=== PATIENT | male | born 1995 | race Two or more races ===

== ENCOUNTER 2022-09-01 21:28 | Emergency (ER) | payer MEDICAID ==
[~2022-09-01] VITALS: Ht 167.6 cm; Wt 63.6 kg
[2022-09-01 22:02] LABS: Basophils # (auto) 0 10 ^3/uL (0-0.2); Basophils % (auto) 0.5 % (0.0-2.0); Eosinophils # (auto) 0.1 10 ^3/uL (0-0.8); Eosinophils % (auto) 1.2 % (0.0-7.0); Hematocrit 43.8 % (41.0-53.0); Hemoglobin 14.7 g/dL (13.5-17.5); Lymphocytes # (auto) 2.2 10 ^3/uL (0.4-5.4); Lymphocytes % (auto) 27.3 % (10.0-50.0); Mean Corpuscular Hemoglobin 27.6 pg (28.0-32.0); Mean Corpuscular Hgb Conc. 33.4 g/dL (32.0-36.0); Mean Corpuscular Volume 82.5 fL (80.0-100.0); Monocytes # (auto) 0.9 10 ^3/uL (0-1.3); Monocytes % (auto) 11.1 % (0.0-12.0); Neutrophils # (auto) 4.9 10 ^3/uL (1.6-8.6); Neutrophils % (auto) 59.9 % (37.0-80.0); Nucleated Red Blood Cells % 0.1 %; Red Blood Cells 5.31 10^6/uL (4.5-5.90); Red Cell Distribution Width 13.5 % (11.8-14.3); White Blood Cell 8.2 10^3/uL (4.4-10.8)
[2022-09-01 22:14] LABS: INR 1.02 (0.9-1.15); Partial Thromboplastin Time 31.3 sec (24.6-33.4)
[2022-09-01 22:16] LABS: Albumin 3.7 g/dL (3.4-5.0); BUN/Creatinine Ratio 15.1; Calcium 8.8 mg/dL (8.5-10.1); Magnesium 2.3 mg/dL (1.6-2.6); Potassium 3.9 mmol/L (3.5-5.1)
[2022-09-01 22:19] LABS: Bilirubin, Total 0.4 mg/dL (0.2-1.0); Total Protein 8.1 g/dL (6.4-8.2)
[2022-09-02 02:50] VITALS: BP 128/72
== END 2022-09-02 03:18 | disposition home or self-care (01) ==
LOC: ER 21:28
DX: R07.89 Other chest pain (principal); F41.9 Anxiety disorder, unspecified; F14.10 Cocaine abuse, uncomplicated; Z79.899 Other long term (current) drug therapy
CPT/HCPCS: 36415; 71045; 80053; 83735; 83880; 84484; 85025; 85610; 85730; 93005

== ENCOUNTER 2024-09-16 00:32 | Emergency (ER) | payer MEDICAID ==
[2024-09-16] MEDS: ONDANSETRON ODT 4 MG TAB PO ONE (00:45)
--- NOTE | 2024-09-16 00:49 | ED.PDOC ---
History of Present Illness HPI Comments 28-year-old male who came to ER due to overdose. Patient states he thinks he smoked fentanyl earlier today. He fell asleep and woke up to find himself covered in vomitus. Claims he doesn't do drugs and he is coming in just to make sure that he is okay. Chief Complaint: Overdose Time Seen by MD: 00:49 Reviewed Notes: Nurses Notes Allergies: Coded Allergies: NO KNOWN ALLERGIES (Unverified , 09/01/22) Information Source: Patient Mode of Arrival: Ambulatory Severity: Moderate Timing: Hours Duration: Since onset Prehospital treatment: None Past Medical History PAST MEDICAL HISTORY: Denies Surgical History: Denies all surgeries Family History Family History: Reviewed,noncontributory to illness Social History Smoker: Non-Smoker Alcohol: Occasionally Drugs: Denies Drug Use Lives In: Home Constitutional: denies: chills, diaphoresis, fatigue, fever, malaise, sweats, weakness, others EENTM: denies: blurred vision, double vision, ear bleeding, ear discharge, ear drainage, ear pain, ear ringing, eye pain, eye redness, hearing loss, mouth pain, mouth swelling, nasal discharge, nose bleeding, nose congestion, nose pain, photophobia, tearing, throat pain, throat swelling, voice changes, others Respiratory: denies: cough, hemoptysis, orthopnea, SOB at rest, shortness of breath, SOB with excertion, stridor, wheezing, others Cardiovascular: denies: chest pain, dizzy spells, diaphoresis, Dyspnea on exertion, edema, irregular heart beat, left arm pain, lightheadedness, palpitations, PND, syncope, others Gastrointestinal: reports: nausea, vomiting; denies: abdomen distended, abdominal pain, blood streaked bowels, constipated, diarrhea, dysphagia, difficu lty swallowing, hematemesis, melena, poor appetite, poor fluid intake, rectal bleeding, rectal pain, others Genitourinary: denies: burning, dysuria, flank pain, frequency, hematuria, incontinence, penile discharge, penile sore, pain, testicle pain, testicle swelling, urgency, others Neurological: denies: dizziness, fainting, headache, left sided numbness, left sided weakness, numbness, paresthesia, pre-existing deficit, right sided numbness, right sided weakness, seizure, speech problems, tingling, tremors, weakness, others Musculoskeletal: denies: back pain, gout, joint pain, joint swelling, muscle pain, muscle stiffness, neck pain, others Integumetry: denies: bruises, change in color, change in hair/nails, dryness, laceration, lesions, lumps, rash, wounds, others Allergic/Immunocompromised: denies: Difficulty Healing, Frequent Infections, Hives, Itching, others Hematologic/Lymphatic: denies: anemia, blood clots, easy bleeding, easy bruising, swollen glands, others Endocrine: denies: excessive hunger, excessive sweating, excessive thirst, excessive urination, flushing, intolerance to cold, intolerance to heat, unexplained weight gain, unexplained weight loss, others Psychiatric: reports: anxiety; denies: bipolar disorder, depression, hopeless, panic disorder, schizophrenia, sleepless, suicidal, others Physical Exam General Appearance: No Apparent Distress, Normal HEENT: Normal ENT Inspection, Pharynx Normal, TMs Normal Neck: Full Range of Motion, Non-Tender, Normal, Normal Inspection Respiratory: Chest Non-Tender, Lungs Clear, No Accessory Muscle Use, No Respiratory Distress, Normal Breath Sounds Cardiovascular: No Edema, No JVD, No Murmur, No Gallop, Normal Peripheral Pulses, Regular Rate/Rhythm Breast Exam: Deferred Gastrointestinal: No Organomegaly, Non Tender, No Pulsatile Mass, Normal Bowel Sounds, Soft Genitalia: Deferred Pelvic: Deferred Rectal: Deferred Extremities: No calf tenderness, Normal capillary refill, Normal inspection, Normal range of motion, Non-tender, No pedal edema Musculoskeletal : Apperance: Normal Neurologic: Alert, powertrain calibration engineer II-XII nml as Tested, No Motor Deficits, Normal Affect, Normal Mood, No Sensory Deficits Cerebellar Function: Normal Reflexes: Normal Skin: Dry, Normal Color, Warm Lymphatic: No Adenopathy Was a procedure done? Was a procedure done?: No Differential Dx Considerations may include: Substance abuse, intoxication, anxiety, suicidal gesture X-Ray, Labs, Meds, VS Vital Signs Date Time Temp Pulse Resp B/P (MAP) Pulse Ox O2 Delivery O2 Flow Rate FiO2 09/16/24 04:00 55 11 96/50 (65) 97 09/16/24 01:11 97.9 68 9 115/83 (94) 97 97.9 09/16/24 01:11 68 9 97 Room Air* 0 21 09/16/24 00:44 97.1 88 14 134/84 (101) 100 Current Medications Medications (Trade) Dose Ordered Sig/Trupti Route Start Time Stop Time Status Last Admin Ondansetron HCl (Zofran Po) 4 mg ONCE ONCE PO 09/16/24 00:45 09/16/24 00:54 DC 09/16/24 00:45 Naloxone HCl (Narcan) 0.4 mg ONCE ONCE IM 09/16/24 00:45 09/16/24 00:54 DC 09/16/24 01:25 X-Ray, Labs, Meds, VS Comment Addendum by Dr. Bess: Patient was A&O x4. Patient ambulates with difficulty. He was no other complaints. Physical exam was benign. As such, patient was discharged home. Asked to refrain from using drugs. Time of 1ST Reevaluation: 00:43 Reevaluation 1ST: Unchanged Patient Education/Counseling: Diagnosis, Treatment Family Education/Counseling: No Family Present Departure 1 Departure Time of Disposition: 07:50 Impression: Primary Impression: Opiate abuse, episodic Disposition: 01 HOME / SELF CARE / HOMELESS Condition: Good Discharged With: Self Critical Care Note Critical Care Time?: No Stability Stability form required: No Heart Score Heart Score: Heart Score Response (Comments) Value History N/A 0 EKG N/A 0 Age N/A 0 Risk Factors N/A 0 Troponin N/A 0 Total 0 I personally scribed for MILAGROS SCHMIDT MD ([email or web address]) on 09/16/24 at 00:49. Electronically submitted by Aime Richard ([email or web address]). MILAGROS SCHMIDT MD Sep 16, 2024 00:49 ARASELI BESS MD Sep 16, 2024 07:51
[2024-09-16 01:11] VITALS: PULSE 68; RESP 9; O2SAT 97
[2024-09-16] MEDS: NALOXONE HCL 0.4 MG/ML VIAL IM ONE (01:25)
[2024-09-16 08:00] VITALS: BP 114/75; RESP 16; TEMP 97.9; O2SAT 99
[2024-09-16 08:10] VITALS: PULSE 54
== END 2024-09-16 07:51 | disposition home or self-care (01) ==
LOC: ER 00:35
DX: F11.10 Opioid abuse, uncomplicated (principal); R11.10 Vomiting, unspecified
CPT/HCPCS: 82947; 96372; 99285; J2310; Q0162

== ENCOUNTER 2024-09-25 18:10 | Emergency (ER) | payer MEDICAID ==
[~2024-09-25] VITALS: Ht 167.6 cm; Wt 63.5 kg
--- NOTE | 2024-09-25 19:19 | DVH ---
EXAM: US TESTICULAR ULTRASOUND Clinical History: Testicular pain Comparison: None TECHNIQUE: Grayscale color-flow and focus duplex Doppler also examination of the contents of the scro cat was performed. Findings: Right testis measures 3.3 x 2.0 x 2.7 cm. Right epididymal head measures 1.0 cm. 0.9 cm anechoic lesi on in the epididymis. No right hydrocele or varicocele. Left testis measures 3.3 x 2.3 x 2.7 cm. Left epididymal head measures 1.1 cm. No left hydrocele or v aricocele. Homogeneous echotexture noted in both testes without evidence of intratesticular masses. Arterial and venous flow is documented to both testes. Impression: 1. No evidence of testicular torsion or intratesticular masses. 2. No hydrocele or varicocele bilaterally. 3. Right epididymal cyst.
--- NOTE | 2024-09-25 19:32 | ED.PDOC ---
General HPI Comments PT REPORTS TESTICULAR PAIN x2 WEEKS. PT DENIES ANY NOTED SWELLING OR URINARY SYMPTOMS. PT DENIES SHOWING THIS RN. Denies redness, injury, or history of STDs. Chief Complaint: Testicle Pain Time Seen by MD: 19:03 Reviewed notes: Nurses Notes, Medications, Allergies Allergies: Coded Allergies: NO KNOWN ALLERGIES (Unverified , 09/01/22) Information Source: Patient Mode of Arrival: Ambulatory Past Medical History PAST MEDICAL HISTORY: Denies Surgical History: Denies all surgeries Family History Family History: Reviewed,noncontributory to illness Social History Smoker: Non-Smoker Alcohol: Occasionally Drugs: Denies Drug Use Lives In: Home Constitutional: denies: chills, diaphoresis, fatigue, fever, malaise, sweats, weakness, others EENTM: denies: blurred vision, double vision, ear bleeding, ear discharge, ear drainage, ear pain, ear ringing, eye pain, eye redness, hearing loss, mouth pain, mouth swelling, nasal discharge, nose bleeding, nose congestion, nose pain, photophobia, tearing, throat pain, throat swelling, voice changes, others Respiratory: denies: cough, hemoptysis, orthopnea, SOB at rest, shortness of breath, SOB with excertion, stridor, wheezing, others Cardiovascular: denies: chest pain, dizzy spells, diaphoresis, Dyspnea on exertion, edema, irregular heart beat, left arm pain, lightheadedness, palpitations, PND, syncope, others Gastrointestinal: denies: abdomen distended, abdominal pain, blood streaked bowels, constipated, diarrhea, dysphagia, difficulty swallowing, hematemesis, melena, nausea, poor appetite, poor fluid intake, rectal bleeding, rectal pain, vomiting, others Genitourinary: reports: testicle pain; denies: burning, dysuria, flank pain, frequency, hematuria, incontinence, penile discharge, penile sore, pain, testicle swelling, urgency, others Neurological: denies: dizziness, fainting, headache, left sided numbness, left sided weakness, numbness, paresthesia, pre-existing deficit, right sided numbness, right sided weakness, seizure, speech problems, tingling, tremors, weakness, others Musculoskeletal: denies: back pain, gout, joint pain, joint swelling, muscle pain, muscle stiffness, neck pain, others Integumetry: denies: bruises, change in color, change in hair/nails, dryness, laceration, lesions, lumps, rash, wounds, others Allergic/Immunocompromised: denies: Difficulty Healing, Frequent Infections, Hives, Itching, others Hematologic/Lymphatic: denies: anemia, blood clots, easy bleeding, easy bruising, swollen glands, others Endocrine: denies: excessive hunger, excessive sweating, excessive thirst, excessive urination, flushing, intolerance to cold, intolerance to heat, unexplained weight gain, unexplained weight loss, others Psychiatric: denies: anxiety, bipolar disorder, depression, hopeless, panic disorder, schizophrenia, sleepless, suicidal, others Physical Exam General Appearance: No Apparent Distress, Normal HEENT: Pharynx Normal Neck: Full Range of Motion, Non-Tender Respiratory: Lungs Clear, No Respiratory Distress, Normal Breath Sounds Cardiovascular: No Murmur, Normal Peripheral Pulses, Regular Rate/Rhythm Breast Exam: Deferred Gastrointestinal: Non Tender, Soft Genitalia: Testicle (No noted swelling, erythema, or lesions on bilateral testicles), Normal Pelvic: Deferred Rectal: Deferred Extremities: Normal capillary refill, Normal inspection, Normal range of motion, Non-tender, No pedal edema Musculoskeletal : Apperance: Normal Neurologic: Alert, gift packer II-XII nml as Tested, No Motor Deficits, Normal Affect, Normal Mood, No Sensory Deficits Cerebellar Function: Normal Reflexes: Normal Skin: Dry, Normal Color, Warm Lymphatic: No Adenopathy Was a procedure done? Was a procedure done?: No Differential Diagnosis Kidney stone (Female): N/A Kidney stone (Male): N/A Penile/Scrotal: STD, Testicular Torsion Urinary Problem (Male): N/A Urinary Problem (Female): N/A X-Ray, Labs, Meds, VS Vital Signs Date Time Temp Pulse Resp B/P (MAP) Pulse Ox O2 Delivery O2 Flow Rate FiO2 09/25/24 18:18 98.6 94 18 130/92 (105) 99 X-Ray, Labs, Meds, VS Comment Ultrasound shows cyst no torsion, or infection. Results given to patient advised him to follow up with his PCP in 1-2 days for referral to Urology for continued evaluation. Rest increase p.o. fluids with electrolyte. Supportive underwear try ice. Tylenol or Motrin. Return precautions given patient indicates understanding agrees with discharge plan of care. Time of 1ST Reevaluation: 19:31 Reevaluation 1ST: Improved Patient Education/Counseling: Diagnosis, Treatment, Prognosis, Need For Follow Up Family Education/Counseling: No Family Present Departure 1 Departure Time of Disposition: 19:31 Impression: Primary Impression: Benign cyst of testis Disposition: 01 HOME / SELF CARE / HOMELESS Condition: Stable Discharged With: Self Critical Care Note Critical Care Time?: No Stability Stability form required: FELIPE Sequeira Sep 25, 2024 19:32
[2024-09-25 19:38] VITALS: BP 130/92; PULSE 94; RESP 18; TEMP 98.6; O2SAT 99
== END 2024-09-25 19:44 | disposition home or self-care (01) ==
LOC: ER 18:10
DX: N44.2 Benign cyst of testis (principal)
CPT/HCPCS: 76870

== ENCOUNTER 2024-11-06 19:53 | Emergency (ER) | payer MEDICAID ==
[~2024-11-06] VITALS: Ht 175.3 cm; Wt 63.6 kg
--- NOTE | 2024-11-06 19:59 | ED.PDOC ---
Altered Mental Status HPI Comments 29 y.o male with PMHx of DM and HTN, presents to the ED via EMS for an evaluation of and OD. EMS reports finding patient behind a store with weak pulses and pin point pupils. EMS administrated 4 of Narcan with response. Patient reports daily use of methamphetamine, states he last used this morning but it was a pack of variety of substances. Patient previously used Fentanyl but no longer uses. He denies any pain or symptoms at this time. Time Seen by MD: 19:51 Reviewed Notes: Nurses Notes, Trapeze Performer Notes, Medications, Allergies Allergies: Coded Allergies: NO KNOWN ALLERGIES (Unverified , 09/01/22) Information Source: Patient, Emergency Med Personnel Mode of Arrival: EMS Severity: Moderate Duration: Since onset Prehospital treatment: 12 Lead EKG, Accucheck (292), Teradata Architect, Treatment (Narcan ) Quality: Decreased Alertness Recent: None History of: Diabetes Associated Signs and Symptoms: None Past Medical History PAST MEDICAL HISTORY: DM, HTN Surgical History: Denies all surgeries Family History Family History: Reviewed,noncontributory to illness Social History Smoker: Cigarettes Alcohol: Occasionally Drugs: Marijuana, Methamphetamine Lives In: Home Constitutional: denies: chills, diaphoresis, fatigue, fever, malaise, sweats, weakness, others EENTM: denies: blurred vision, double vision, ear bleeding, ear discharge, ear drainage, ear pain, ear ringing, eye pain, eye redness, hearing loss, mouth pain, mouth swelling, nasal discharge, nose bleeding, nose congestion, nose pain, photophobia, tearing, throat pain, throat swelling, voice changes, others Respiratory: denies: cough, hemoptysis, orthopnea, SOB at rest, shortness of breath, SOB with excertion, stridor, wheezing, others Cardiovascular: denies: chest pain, dizzy spells, diaphoresis, Dyspnea on exertion, edema, irregular heart beat, left arm pain, lightheadedness, palpitations, PND, syncope, others Gastrointestinal: denies: abdomen distended, abdominal pain, blood streaked bowels, constipated, diarrhea, dysphagia, difficulty swallowing, hematemesis, melena, nausea, poor appetite, poor fluid intake, rectal bleeding, rectal pain, vomiting, others Genitourinary: denies: burning, dysuria, flank pain, frequency, hematuria, incontinence, penile discharge, penile sore, pain, testicle pain, testicle swelling, urgency, others Neurological: denies: dizziness, fainting, headache, left sided numbness, left sided weakness, numbness, paresthesia, pre-existing deficit, right sided numbness, right sided weakness, seizure, speech problems, tingling, tremors, weakness, others Musculoskeletal: denies: back pain, gout, joint pain, joint swelling, muscle pain, muscle stiffness, neck pain, others Integumetry: denies: bruises, change in color, change in hair/nails, dryness, laceration, lesions, lumps, rash, wounds, others Allergic/Immunocompromised: denies: Difficulty Healing, Frequent Infections, Hives, Itching, others Hematologic/Lymphatic: denies: anemia, blood clots, easy bleeding, easy bruising, swollen glands, others Endocrine: denies: excessive hunger, excessive sweating, excessive thirst, excessive urination, flushing, intolerance to cold, intolerance to heat, unexplained weight gain, unexplained weight loss, others Psychiatric: denies: anxiety, bipolar disorder, depression, hopeless, panic disorder, schizophrenia, sleepless, suicidal, others All Other Systems: Reviewed and Negative Physical Exam General Appearance: Mild Distress HEENT: Normal ENT Inspection, Pharynx Normal, TMs Normal Neck: Full Range of Motion, Non-Tender, Normal, Normal Inspection Respiratory: Chest Non-Tender, Lungs Clear, No Accessory Muscle Use, No Respiratory Distress, Normal Breath Sounds Cardiovascular: No Edema, No JVD, No Murmur, No Gallop, Normal Peripheral Pulses, Regular Rate/Rhythm Breast Exam: Deferred Gastrointestinal: No Organomegaly, Non Tender, No Pulsatile Mass, Normal Bowel Sounds, Soft Genitalia: Deferred Pelvic: Deferred Rectal: Deferred Extremities: No calf tenderness, Normal capillary refill, No pedal edema Musculoskeletal : Apperance: Normal Neurologic: Alert, youth services specialist II-XII nml as Tested, Motor Weakness, Normal Affect, Normal Mood, No Sensory Deficits Cerebellar Function: Normal Reflexes: Normal Skin: Dry, Normal Color, Warm Lymphatic: No Adenopathy Was a procedure done? Was a procedure done?: No Differential Diagnosis (ALOC) Differential Diagnosis: Hypoglycemia, DKA, Hypoxemia, Closed Head Injury, Drug Overdose, ETOH Intoxication X-Ray, Labs, Meds, VS Vital Signs Date Time Temp Pulse Resp B/P (MAP) Pulse Ox O2 Delivery O2 Flow Rate FiO2 11/06/24 20:42 97.9 95 10 140/100 (113) 99 97.9 Lab Test 11/06/24 20:18 Range/Units White Blood Count 11.0 H 4.4-10.8 10^3/uL Red Blood Count 5.56 4.5-5.90 10^6/uL Hemoglobin 16.0 13.5-17.5 g/dL Hematocrit 46.6 41.0-53.0 % Mean Corpuscular Volume 83.9 80.0-100.0 fL Mean Corpuscular Hemoglobin 28.7 28.0-32.0 pg Mean Corpuscular Hemoglobin Concent 34.2 32.0-36.0 g/dL Red Cell Distribution Width 13.4 11.8-14.3 % Platelet Count 237 140-450 10^3/uL Mean Platelet Volume 7.4 6.9-10.8 fL Neutrophils (%) (Auto) 67.8 37.0-80.0 % Lymphocytes (%) (Auto) 24.7 10.0-50.0 % Monocytes (%) (Auto) 6.0 0.0-12.0 % Eosinophils (%) (Auto) 1.2 0.0-7.0 % Basophils (%) (Auto) 0.3 0.0-2.0 % Neutrophils # (Auto) 7.4 1.6-8.6 10 ^3/uL Lymphocytes # (Auto) 2.7 0.4-5.4 10 ^3/uL Monocytes # (Auto) 0.7 0-1.3 10 ^3/uL Eosinophils # (Auto) 0.1 0-0.8 10 ^3/uL Basophils # (Auto) 0 0-0.2 10 ^3/uL Nucleated Red Blood Cells 0.0 % Sodium Level 139 136-145 mmol/L Potassium Level 3.7 3.5-5.1 mmol/L Chloride Level 105 98-107 mmol/L Carbon Dioxide Level 25 20-31 mmol/L Anion Gap 9 5-15 Blood Urea Nitrogen 10 9-23 mg/dL Creatinine 1.31 H 0.700-1.30 mg/dL Glomerular Filtration Rate Calc 77 >90 mL/min BUN/Creatinine Ratio 7.6 L 10.0-20.0 Serum Glucose 274 H 74-106 mg/dL Calcium Level 9.6 8.7-10.4 mg/dL Plasma/Serum Blood Alcohol < 3.0 <10 mg/dL The patient's CBC shows a slightly elevated white blood cell count of 11.0 The CBC is within normal limits. The chemistry panel is within normal limits. At this time, the patient is going to be referred for social sciences research scientist secondary to his living condition The patient will be signed out to Dr. Melgar Time of 1ST Reevaluation: 19:55 Reevaluation 1ST: Unchanged Patient Education/Counseling: Diagnosis, Treatment, Prognosis Family Education/Counseling: No Family Present Departure 1 Departure Time of Disposition: 21:25 Impression: Primary Impression: Opiate abuse, episodic Disposition: 30 STILL A PATIENT Condition: Fair Critical Care Note Critical Care Time?: No Stability Stability form required: No I personally scribed for MAYELIN TIM MD ([email or web address]) on 11/06/24 at 19:59. Electronically submitted by Patricia Joyner ([facility]). MAYELNI TIM MD Nov 06, 2024 19:59
[2024-11-06 20:25] LABS: Basophils # (auto) 0 10 ^3/uL (0-0.2); Basophils % (auto) 0.3 % (0.0-2.0); Eosinophils # (auto) 0.1 10 ^3/uL (0-0.8); Eosinophils % (auto) 1.2 % (0.0-7.0); Hematocrit 46.6 % (41.0-53.0); Lymphocytes # (auto) 2.7 10 ^3/uL (0.4-5.4); Lymphocytes % (auto) 24.7 % (10.0-50.0); Mean Corpuscular Hemoglobin 28.7 pg (28.0-32.0); Mean Corpuscular Hgb Conc. 34.2 g/dL (32.0-36.0); Mean Corpuscular Volume 83.9 fL (80.0-100.0); Monocytes # (auto) 0.7 10 ^3/uL (0-1.3); Neutrophils # (auto) 7.4 10 ^3/uL (1.6-8.6); Neutrophils % (auto) 67.8 % (37.0-80.0); Platelet Count (auto) 237 10^3/uL (140-450); Red Blood Cells 5.56 10^6/uL (4.5-5.90); Red Cell Distribution Width 13.4 % (11.8-14.3)
[2024-11-06 20:33] LABS: Anion Gap 9 (5-15); Carbon Dioxide 25 mmol/L (20-31); Chloride 105 mmol/L (98-107); Potassium 3.7 mmol/L (3.5-5.1); Sodium 139 mmol/L (136-145)
[2024-11-06 20:34] LABS: Calcium 9.6 mg/dL (8.7-10.4)
[2024-11-06 20:39] LABS: BUN/Creatinine Ratio 7.6 (10.0-20.0); Blood Alcohol < 3.0 mg/dL (<10); Blood Urea Nitrogen 10 mg/dL (9-23); Glucose 274 mg/dL (74-106)
[2024-11-06] MEDS: SODIUM CHLORIDE 0.9% 1,000 ML IVB ONE (23:32)
[2024-11-07 02:00] VITALS: BP 129/81; PULSE 74; TEMP 98.7
[2024-11-07 02:11] VITALS: RESP 20; O2SAT 98
== END 2024-11-07 02:12 | disposition left against medical advice (07) ==
LOC: EDBD 19:53 → ER 19:53
DX: F11.10 Opioid abuse, uncomplicated (principal); F15.10 Other stimulant abuse, uncomplicated; F12.90 Cannabis use, unspecified, uncomplicated; F17.210 Nicotine dependence, cigarettes, uncomplicated; I10 Essential (primary) hypertension; E11.9 Type 2 diabetes mellitus without complications; Y90.0 Blood alcohol level of less than 20 mg/100 ml
CPT/HCPCS: 36415; 80048; 80320; 85025; 96360; 99283; J7030

== ENCOUNTER 2024-11-10 03:30 | Inpatient (IN) | payer MEDICAID ==
[2024-11-10] VITALS (13 sets, daily range): BP systolic 78–109; BP diastolic 44–67; PULSE 93–118; RESP 16–35; TEMP 99.4; O2SAT 86–99
[~2024-11-10] VITALS: Ht 167.6 cm; Wt 65.7 kg
--- NOTE | 2024-11-10 04:16 | ED.PDOC ---
History of Present Illness HPI Comments 29 year old male presents to the ED via EMS with a chief complaint of abdominal pain onset 2 days. Per EMS, patient was tachycardiac on scene with 117 bpm, BP 60/30 after taken several times. Patient was seen in this ED on 11/06/24 due to overdose. Patient states he is currently experiencing abdominal pain, back pain, nausea, vomiting, diarrhea, cough. Was given NS 500 ccs IV was given in route, BP improved to 113/89, temperature 99.3 F. PMHx HTN, DM. Denies chest pain, shortness of breath, dizziness, dysuria, hematuria, hematemesis. No other symptoms or modifying factors present at this time. Chief Complaint: Abdominal Pain Time Seen by MD: 04:08 Reviewed Notes: Medications, Allergies Allergies: Coded Allergies: NO KNOWN ALLERGIES (Unverified , 09/01/22) Information Source: Patient, Emergency Med Personnel Mode of Arrival: EMS Severity: Moderate Duration: Since onset Prehospital treatment: IVF, Oxygen Vital Signs Vital Signs Date Time Temp Pulse Resp B/P (MAP) Pulse Ox O2 Delivery O2 Flow Rate FiO2 11/10/24 10:30 103 20 98/70 (79) 97 11/10/24 10:00 99.0 99.0 11/10/24 08:00 Room Air* 0 21 Physical Exam General: Awake, alert and oriented. No acute distress. Skin: Skin in warm, dry and intact. Appropriate color for ethnicity. HEENT: The head is normocephalic and atraumatic. Conjunctivae are clear without exudates or hemorrhage. Sclera is non-icteric. EOM are intact. No signs of nystagmus. Eyelids are normal in appearance without swelling or lesions. Oral mucosa is pink and moist Neck: The neck is supple with normal range of motion. No JVD. Cardiac: Heart rate and rhythm are normal. No murmurs, gallops, or rubs are auscultated. Respiratory: No signs of respiratory distress. Lung sounds are clear in all lobes bilaterally without rales, rhonchi, or wheezes. Abdominal: Abdomen is soft, generally-tender without distention. Bowel sounds are present and normoactive in all four quadrants. Extremities: Upper and lower extremities are atraumatic in appearance without deformity or edema. Neurological: The patient is awake, alert and oriented to person, place, and time with normal speech. Speech is clear. There is no facial asymmetry. Psychiatric: Appropriate mood and affect. Good judgement and insight. Review of Systems: REVIEW OF SYSTEMS: No fever, no chills, or fatigue HEENT: No sore throat, no earache, no congestion, no neck pain. Cardiac: No chest pain. No palpitations. Lungs: No shortness of breath, no cough. GI: + nausea, + vomiting, no diarrhea, no constipation, + abdominal pain : No dysuria, frequency, or urgency. No hematuria. Musculoskeletal: No joint pain , no joint swelling, no extremity edema. Skin: No rash, no itching. Neuro: No headache, + dizziness, no weakness Past Medical History PAST MEDICAL HISTORY: DM, HTN Surgical History: Denies all surgeries Family History Family History: Reviewed,noncontributory to illness Social History Smoker: Cigarettes Alcohol: Occasionally Drugs: Marijuana, Methamphetamine Lives In: Home Was a procedure done? 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 Indication: Hypotension, Volume resuscitation, Suspected infection Room prepared for procedure: Yes Analyst performed hand hygien: Yes Maximal sterile barrier precau: Mask/Eye shield, Sterile gown, Cap, Sterlie gloves, Large sterlie drape Skin Preparation: Chlorhexidine gluconate, Providine iodine, Alcohol Skin preparation completely dr: Yes Insertion site: Right, Internal jugular Central line catheter type: [id number] dialysis Number of lumens: 3 Antiseptic ointment applied to: No (Biopatch applied) Post Assessment: Chest X-Ray, Proper placement Informed consent obtained: Yes Risks/benefits/alt described: Yes Differential Dx Considerations may include: Intra-abdominal infection, sepsis, pneumonia, urinary tract infection, drug overdose, intracranial hemorrhage, endocarditis, other X-Ray, Labs, Meds, VS Vital Signs Date Time Temp Pulse Resp B/P (MAP) Pulse Ox O2 Delivery O2 Flow Rate FiO2 11/10/24 10:30 103 20 98/70 (79) 97 11/10/24 10:15 103 20 99/68 (78) 97 11/10/24 10:00 100/73 11/10/24 10:00 99.0 105 20 100/73 (82) 95 99.0 11/10/24 09:45 108/74 11/10/24 09:45 101 20 108/74 (85) 97 11/10/24 09:30 100 20 112/69 (83) 91 11/10/24 09:15 101 20 110/72 (85) 92 11/10/24 09:00 106/71 11/10/24 09:00 92 18 106/71 (83) 95 11/10/24 08:45 106 20 103/80 (88) 95 11/10/24 08:30 102 18 98/70 (79) 93 11/10/24 08:00 93 22 90 Room Air* 0 21 11/10/24 08:00 100/61 11/10/24 08:00 98.5 93 22 100/61 (74) 90 98.5 11/10/24 07:45 100 20 107/71 (83) 96 11/10/24 07:30 98 26 108/71 (83) 95 11/10/24 07:00 102/68 11/10/24 07:00 108 22 102/68 (79) 96 11/10/24 06:00 109 32 99/68 (78) 92 11/10/24 06:00 125/78 11/10/24 05:41 88/56 11/10/24 05:36 97/55 11/10/24 05:31 78/41 11/10/24 04:20 98.2 112 16 90/44 (59) 99 98.2 11/10/24 04:05 98.2 112 16 78/41 (53) 99 98.2 11/10/24 04:05 16 Nasal Cannula* 4 36 11/10/24 03:40 99.3 117 28 113/89 (97) 95 99.3 Lab Test 11/10/24 10:30 11/10/24 08:45 11/10/24 06:49 11/10/24 05:00 Range/Units Influenza Type A Antigen Negative Negative Influenza Type B Antigen Negative Negative SARS-CoV-2 Antigen (Rapid) Negative NEGATIVE Urine Color Yellow Yellow Urine Clarity Turbid H Clear Urine pH 5.0 5.0-9.0 Urine Specific Udall 1.025 1.001-1.035 Urine Protein 1+ H Negative Urine Ketones 1+ H Negative Urine Blood 1+ H Negative /uL Urine Nitrite Negative Negative Urine Bilirubin Negative Negative Urine Urobilinogen Normal Negative mg/dL Urine Leukocyte Esterase Trace Negative /uL Urine RBC 5 0 - 3 /hpf Urine Microscopic WBC 13 H 0-3 /HPF Urine Squamous Epithelial Cells Few <5 /hpf Urine Bacteria None seen None Seen /hpf Urine Hyaline Casts Few 0 - 2 /lpf Urine Mucus Few None Seen Urine Yeast (Budding) Occasional None Seen /hpf Urine Sperm Present None Seen /hpf Urine Osmolality 491 mOsm/kg Urine Creatinine 224.05 H 30.0-125.0 mg/dL Urine Protein/Creatinine Ratio 0.46 Urine Sodium 19 L 40-220 mmol/L Urine Glucose Trace Normal mg/dL Urine Total Protein 103.7 H 1-14 mg/dL Urine Opiates Screen Neg NEGATIVE Urine Fentanyl Screen Pos NEGATIVE Urine Barbiturates Screen Neg NEGATIVE Urine Phencyclidine Screen Neg NEGATIVE Urine Amphetamines Screen Pos NEGATIVE Urine Benzodiazepines Screen Neg NEGATIVE Urine Cocaine Screen Neg NEGATIVE Urine Cannabinoids Screen Neg NEGATIVE Lactic Acid Level 6.4 *H 0.4-2.0 mmol/L Creatine Kinase 152 46-171 U/L Troponin I High Sensitivity 43 15 </=54 ng/L Test 11/10/24 04:25 11/10/24 04:10 Range/Units Blood Gas Specimen Type Arterial Blood Gas Sample Site Right radial Blood Gas Patient Temperature 37.0 Arterial Blood Date Drawn [id number] Arterial Blood pH 7.428 7.350-7.450 Arterial Blood Partial Pressure CO2 24.0 L 35.0-48.0 mmHg Arterial Blood Partial Pressure O2 130.1 H 83.0-108.0 mmHg Arterial Blood HCO3 15.5 L 21.0-28.0 mmol/L Arterial Blood Oxygen Saturation 98.4 H 94.0-98.0 % Arterial Blood Base Excess -7.0 L -2.0-3.0 mmol/L Arterial Blood Oxyhemoglobin 97.6 94.0-98.0 % Arterial Blood Carboxyhemoglobin 0.3 L 0.5-1.5 % Arterial Blood Methemoglobin 0.5 0.0-1.5 % Dickson Test Yes Blood Gas Total Hemoglobin 13.20 L 13.5-17.5 g/dL Blood Gas Liter Flow 6.00 Blood Gas Modality Nasal cannula FiO2 % 44.0 Specimen Drawn By Maggi arriaga White Blood Count 27.9 #H 4.4-10.8 10^3/uL Red Blood Count 4.56 4.5-5.90 10^6/uL Hemoglobin 13.0 #L 13.5-17.5 g/dL Hematocrit 37.6 #L 41.0-53.0 % Mean Corpuscular Volume 82.5 80.0-100.0 fL Mean Corpuscular Hemoglobin 28.5 28.0-32.0 pg Mean Corpuscular Hemoglobin Concent 34.6 32.0-36.0 g/dL Red Cell Distribution Width 13.1 11.8-14.3 % Platelet Count 158 140-450 10^3/uL Mean Platelet Volume 8.1 6.9-10.8 fL Neutrophils (%) (Auto) 37.0-80.0 % Lymphocytes (%) (Auto) 10.0-50.0 % Monocytes (%) (Auto) 0.0-12.0 % Basophils (%) (Auto) 0.0-2.0 % Neutrophils # (Auto) 1.6-8.6 10 ^3/uL Lymphocytes # (Auto) 0.4-5.4 10 ^3/uL Monocytes # (Auto) 0-1.3 10 ^3/uL Differential Total Cells Counted 100.0 100 Neutrophils % (Manual) 70 37.0-80.0 Band Neutrophils % (Manual) 10 Lymphocytes % (Manual) 6 L 10.0-50.0 Monocytes % (Manual) 4 0-12 Eosinophils % (Manual) 0 0-7 Basophils % (Manual) 0 0.0-2.0 Metamyelocytes % (manual) 9 Myelocytes % (Manual) 1 Promyelocytes % (Manual) 0 Blast Cells % (Manual) 0 Reactive Lymphocytes 0 Platelet Estimate Adequate Large Platelets Few Prothrombin Time 13.3 H 9.3-11.8 sec Prothrombin Time INR 1.29 H 0.9-1.15 Sodium Level 135 L 136-145 mmol/L Potassium Level 4.4 3.5-5.1 mmol/L Chloride Level 98 98-107 mmol/L Carbon Dioxide Level 21 20-31 mmol/L Anion Gap 16 H 5-15 Blood Urea Nitrogen 31 H 9-23 mg/dL Creatinine 3.38 #H 0.700-1.30 mg/dL Glomerular Filtration Rate Calc 25 >90 mL/min BUN/Creatinine Ratio 9.2 L 10.0-20.0 Serum Glucose 118 #H 74-106 mg/dL Lactic Acid Level 8.4 *H 0.4-2.0 mmol/L Calcium Level 8.0 L 8.7-10.4 mg/dL Phosphorus Level 5.2 H 2.4-5.1 mg/dL Magnesium Level 1.0 L 1.6-2.6 mg/dL Total Bilirubin 1.1 H 0.2-1.0 mg/dL Aspartate Amino Transferase (AST) 30 13-40 U/L Alanine Aminotransferase (ALT) 47 H 7-40 U/L Alkaline Phosphatase 75 46-116 U/L Troponin I High Sensitivity 14 </=54 ng/L B-Type Natriuretic Peptide 830.78 0-100 pg/mL Total Protein 5.8 5.7-8.2 g/dL Albumin 3.5 3.2-4.8 g/dL Lipase 20 12-53 U/L Vitamin D 25-Hydroxy 9.1 L 30.0-100 ng/mL Parathyroid Hormone (Intact) 96.9 H 18.4-80.1 pg/mL Hepatitis B Surface Antigen Pending Hepatitis C Antibody Pending Current Medications Medications (Trade) Dose Ordered Sig/Trupti Route Start Time Stop Time Status Last Admin Ondansetron HCl (Zofran) 4 mg ONCE ONCE IV 11/10/24 04:30 11/10/24 04:31 DC 11/10/24 04:34 Sodium Chloride 1,000 ml @ 1,000 mls/hr Q1H ONCE IV 11/10/24 04:30 11/10/24 05:29 DC 11/10/24 04:31 Sodium Chloride 1,000 ml @ 130 mls/hr [id number] ONCE IV 11/10/24 04:30 11/10/24 12:11 DC 11/10/24 05:30 Piperacillin Sod/ Tazobactam Sod 100 ml @ 100 mls/hr ONCE ONCE IV 11/10/24 04:30 11/10/24 05:29 DC 11/10/24 04:34 Vancomycin HCl 200 ml @ 200 mls/hr ONCE ONCE IV 11/10/24 04:30 11/10/24 05:29 DC 11/10/24 05:30 Norepinephrine Bitartrate 250 ml @ 3.75 mls/hr Q24H IV 11/10/24 05:15 11/10/24 05:31 Lorazepam (Ativan Inj) 1 mg ONCE ONCE IV 11/10/24 05:30 11/10/24 05:31 DC 11/10/24 05:33 Time of 1ST Reevaluation: 04:38 Reevaluation 1ST: Unchanged Patient Education/Counseling: Diagnosis, Treatment, Prognosis Family Education/Counseling: No Family Present Departure 1 Departure Time of Disposition: 06:00 Impression: Primary Impression: Pneumonia Additional Impressions: Sepsis Hypotension Acute renal failure Disposition: ADMITTED INPATIENT Condition: Serious Comments 29-year-old male who presents to the emergency department with complaints of back pain, abdominal pain, headache, feeling weak. Workup revealed that patient has pneumonia. Patient was hypotensive, IV fluids, antibiotics and pressors were administered. Patient admitted for further treatment, evaluation and monitoring. Critical Care Note Critical Care Time?: Yes (35 min-critical care time only) Critical care comment: Due to a high probability of clinically significant, life threatening deterioration, the patient required my highest level of preparedness to intervene emergently and I personally spent this critical care time directly and personally managing the patient. This critical care time included obtaining a history; examining the patient; pulse oximetry; ordering and review of studies; arranging urgent treatment with development of a management plan; evaluation of patient's response to treatment; frequent reassessment; and, discussions with other providers. This critical care time was performed to assess and manage the high probability of imminent, life-threatening deterioration that could result in multi-organ failure. It was exclusive of separately billable procedures and treating other patients and teaching time. Please see my other sections and the rest of the note for further information on patient assessment and treatment. Stability Stability form required: No I personally scribed for HOMAR MALIK MD ([email or web address]) on 11/10/24 at 04:16. Electronically submitted by Dayanara Lee ([email or web address]). I personally scribed for HOMAR MALIK MD ([email or web address]) on 11/10/24 at 05:57. Electronically submitted by Dayanara Lee ([email or web address]). HOMAR MALIK MD Nov 10, 2024 04:16
[2024-11-10] MEDS: SODIUM CHLORIDE 0.9% 1,000 ML IV ONE ×2 (04:31→05:30)
[2024-11-10] MEDS: ONDANSETRON HCL 4 MG/2 ML VIAL IV ONE (04:34)
[2024-11-10] MEDS: PIPERACILLIN-TAZO 4.5GM 100 ML IV ONE (04:34)
[2024-11-10 04:43] LABS: Hematocrit 37.6 % (41.0-53.0); Mean Corpuscular Hemoglobin 28.5 pg (28.0-32.0); Mean Corpuscular Hgb Conc. 34.6 g/dL (32.0-36.0); Mean Corpuscular Volume 82.5 fL (80.0-100.0); Platelet Count (auto) 158 10^3/uL (140-450); Red Blood Cells 4.56 10^6/uL (4.5-5.90); Red Cell Distribution Width 13.1 % (11.8-14.3); White Blood Cell 27.9 10^3/uL (4.4-10.8)
[2024-11-10 04:46] LABS: Albumin 3.5 g/dL (3.2-4.8); Alkaline Phosphatase 75 U/L (46-116); Anion Gap 16 (5-15); Aspartate Aminotransferase 30 U/L (13-40); BUN/Creatinine Ratio 9.2 (10.0-20.0); Bilirubin, Total 1.1 mg/dL (0.2-1.0); Carbon Dioxide 21 mmol/L (20-31); Chloride 98 mmol/L (98-107); Potassium 4.4 mmol/L (3.5-5.1); Total Protein 5.8 g/dL (5.7-8.2)
[2024-11-10 04:47] LABS: Alanine Aminotransferase 47 U/L (7-40); Blood Urea Nitrogen 31 mg/dL (9-23); Glucose 118 mg/dL (74-106); Sodium 135 mmol/L (136-145)
[2024-11-10 04:48] LABS: Basophils % (manual) 0 (0.0-2.0); Blast Cells 0; Eosinophils % (manual) 0 (0-7); Promyelocytes % 0; Reactive Lymphocytes 0
[2024-11-10 04:49] LABS: INR 1.29 (0.9-1.15); Lactic Acid w/Reflex 8.4 mmol/L (0.4-2.0); Prothrombin Time 13.3 sec (9.3-11.8)
[2024-11-10] MEDS: VANCOMYCIN 1GM/200ML PM 200 ML IV ONE (05:30)
[2024-11-10] MEDS: NOREPINEPHRINE 8 MG/250ML KIT 250 ML IV SCH (05:31)
[2024-11-10] MEDS: NOREPINEPHRINE 8 MG/250ML KIT 250 ML IV ONE (05:32)
[2024-11-10] MEDS: LORazepam 2MG/ML-1ML VIAL IV ONE (05:33)
[2024-11-10 05:34] LABS: Band Neutrophils % (manual) 10; Large Platelets FEW; Lymphocytes % (manual) 6 (10.0-50.0); Metamyelocytes % 9; Monocytes % (manual) 4 (0-12); Myelocytes % 1; Platelet Estimate Adequate
--- NOTE | 2024-11-10 06:15 | DVH ---
EXAM: XY CHEST XRAY 1 VIEW HISTORY: Post intubation, hypoxia COMPARISON: CHEST PORTABLE on DOS: 09/01/22, CXRP on DOS: 09/01/22 TECHNIQUE: Portable AP view of the chest was performed. FINDINGS: There is a right IJ central line with its tip in the right atrium. There is patchy infiltrate in the right mid to lower lung. The left lung is clear. No pneumothorax. The heart is not enlarged. There is lower thoracic levoscoliosis. IMPRESSION: 1. Right IJ central line present with its tip in the right atrium. 2. Right mid to lower lung pneumonia. 3. The left lung is clear.
--- NOTE | 2024-11-10 06:42 | DVH ---
EXAM: CT HEAD WITHOUT CONTRAST HISTORY: Headache COMPARISON: None TECHNIQUE: Noncontrast axial CT images of the head were performed. Sagittal and coronal reformatted i mages were obtained. This CT exam was performed using 1 or more of the following dose reduction techn iques: Automated exposure control, adjustment of the mA and/or kv according to patient size, or the u se of iterative reconstruction techniques. Radiation Dose: CTDI volume is 56.33 mGy. Dose-length product is 1108.35 mGy*cm FINDINGS: No intracranial hemorrhage, mass, midline shift, hydrocephalus, or evidence of acute large vessel inf arct. There is a tiny cavum septum pellucidum. The partially-visualized paranasal sinuses are clear. The bilateral mastoid air cells and middle ear spaces are clear. No cranial fracture or scalp edema. There is adenoid tonsillar hypertrophy. IMPRESSION: No acute intracranial process.
--- NOTE | 2024-11-10 06:53 | DVH ---
EXAM: CT Chest, Abdomen and Pelvis Without Intravenous Contrast CLINICAL INDICATION: hypotensive, chest pain, short of breath, ABD PAIN TECHNIQUE: Axial computed tomography images of the chest, abdomen and pelvis without intravenous con trast. This CT exam was performed using one or more of the following dose reduction techniques: aut omated exposure control, adjustment of the mA and/or kV according to patient size, and/or use of iter ative reconstruction technique. CONTRAST: COMPARISON: None FINDINGS: ARTIFACTS: Motion artifact. CHEST: LUNGS AND PLEURAL SPACES: Partial consolidation of the right lower lobe, likely pneumonia. No sign ificant effusion. HEART: Unremarkable. No cardiomegaly. No significant pericardial effusion. No significant watts ry artery calcifications. MEDIASTINUM: Apparent wall thickening of the distal esophagitis could relate to esophagitis. Clini bryant correlation is recommended. Scattered mediastinal lymph nodes some of which are upper limits of normal in size and are most likely reactive lymph nodes. ABDOMEN: LIVER: Hepatomegaly with fatty infiltration. GALLBLADDER AND BILE DUCTS: Unremarkable. No calcified stones. No ductal dilation. PANCREAS: Unremarkable. No ductal dilation. SPLEEN: Unremarkable. No splenomegaly. ADRENALS: Unremarkable. No mass. KIDNEYS AND URETERS: Unremarkable. No obstructing stones. No hydronephrosis. STOMACH AND BOWEL: Unremarkable. No obstruction. No mucosal thickening. PELVIS: APPENDIX: No findings to suggest acute appendicitis. BLADDER: Unremarkable. No stones. REPRODUCTIVE: Unremarkable as visualized. CHEST, ABDOMEN and PELVIS: INTRAPERITONEAL SPACE: Unremarkable. No significant fluid collection. No free air. BONES/JOINTS: Unremarkable. No acute fracture. No dislocation. SOFT TISSUES: Unremarkable. VASCULATURE: Unremarkable. No aortic aneurysm. LYMPH NODES: See above. OTHER FINDINGS: . . IMPRESSION: 1. Apparent wall thickening of the distal esophagitis could relate to esophagitis. Clinical correla tion is recommended. 2. Partial consolidation of the right lower lobe, likely pneumonia. 3. Scattered mediastinal lymph nodes some of which are upper limits of normal in size and are most l ikely reactive lymph nodes. 4. Hepatomegaly with fatty infiltration.
[2024-11-10 08:54] LABS: Urine Bacteria None Seen /hpf (None Seen)
[2024-11-10 09:15] LABS: Urine Blood 1+ /uL (Negative); Urine Budding Yeast OCCASIONAL /hpf (None Seen); Urine Clarity Turbid (Clear); Urine Color Yellow (Yellow); Urine Hyaline Cast FEW /lpf (0 - 2); Urine Mucus FEW (None Seen); Urine Protein, UAD 1+ (Negative); Urine Specific Gravity 1.025 (1.001-1.035); Urine Sperm PRESENT /hpf (None Seen); Urine Squamous Epithelial Cell FEW /hpf (<5); Urine Urobilinogen Normal (Negative); Urine WBC 13 /HPF (0-3)
[2024-11-10] MEDS ORDERED: NITROGLYCERIN 0.4 MG SL TAB SL PRN (10:45)
[2024-11-10] MEDS ORDERED: VANCOMYCIN PER PHARMACY 0 MG IV SCH (10:45)
[2024-11-10] MEDS ORDERED: ONDANSETRON HCL 4 MG/2 ML VIAL IV PRN (10:45)
--- NOTE | 2024-11-10 10:59 | DVHHP2 ---
History of Present Illness Reason for Visit: Abdominal pain with headache History of Present Illness Derek Payne is a 29-year-old male with past medical history of glass that was lodged in his head and removal who presents to the ED with abdominal pain, headache, vomiting, diarrhea, weakness, and right flank pain x3 days. Patient reports that he is homeless. Patient reports the pain as aching throbbing and constant in nature. He also reports that he has been having frequent diarrhea that is uncontrolled. Patient denies any chest pain, shortness of breath, fever, chills, li ghtheadedness, dizziness, recent sick contacts, recent ingestion of spoiled food, urinary symptoms, hematemesis, hematochezia, or melena. Upon examination patient is on 2 L nasal cannula oxygen. Past Surgical History: Other (Reports that glass was taken out of his head possible lac) Family History: DM, Other (Dad with diabetes) Smoke: <1 pack per day ALCOHOL: occassional Drugs: Marijuana, Other (Methamphetamine) Lives: Homeless Domestic Violence: Neg Review of Systems Constitutional: Yes: Other (Headache) Gastrointestinal: Vomiting, Abdominal Pain, Diarrhea Musculoskeletal: other (Right flank pain) Allergies: Coded Allergies: NO KNOWN ALLERGIES (Unverified , 09/01/22) Medications Current Medications Medications Dose Ordered Sig/Trupti Route Start Time Stop Time Status Last Admin Dose Admin Norepinephrine Bitartrate 250 ml @ 3.75 mls/hr Q24H IV 11/10/24 05:15 11/10/24 05:31 3.75 MLS/HR Vancomycin HCl 0 ml @ 0 mls/hr UD IV 11/10/24 10:45 UNV Piperacillin Sod/ Tazobactam Sod 100 ml @ 25 mls/hr Q8HR IV 11/10/24 14:00 UNV Sodium Chloride 1,000 ml @ 120 mls/hr Q8H20M IV 11/10/24 10:45 UNV Ondansetron HCl 4 mg Q4HP PRN IV 11/10/24 10:45 UNV Enoxaparin Sodium 30 mg DAILY SC 11/11/24 10:00 UNV Acetaminophen 650 mg Q6HP PRN PO 11/10/24 10:45 UNV Nitroglycerin 0.4 mg Q5MINP PRN SL 11/10/24 10:45 UNV Morphine Sulfate 2 mg Q30M PRN IV 11/10/24 10:45 UNV Exam Vital Signs Vital Signs Date Time Temp Pulse Resp B/P (MAP) Pulse Ox O2 Delivery O2 Flow Rate FiO2 11/10/24 10:30 103 20 98/70 (79) 97 11/10/24 10:00 99.0 99.0 11/10/24 08:00 Room Air* 0 21 General Appearance: Alert, Oriented X3, Cooperative, mild distress HEENT: Atraumatic, PERRLA, EOMI Respiratory: Normal air movement Cardiovascular: Normal S1, Normal S2, No murmurs Abdominal: Soft Extremities: Normal pulses Neuro: Normal speech, Strength at 5/5 X4 ext, Normal tone, Sensation intact Psych/Mental Status: Mental status NL, Mood NL Labs/Xrays Labs Test 11/10/24 10:30 11/10/24 08:45 11/10/24 06:49 11/10/24 04:25 Range/Units Urine Color Yellow Yellow Urine Clarity Turbid H Clear Urine pH 5.0 5.0-9.0 Urine Specific [place] 1.025 1.001-1.035 Urine Protein 1+ H Negative Urine Ketones 1+ H Negative Urine Blood 1+ H Negative /uL Urine Nitrite Negative Negative Urine Bilirubin Negative Negative Urine Urobilinogen Normal Negative mg/dL Urine Leukocyte Esterase Trace Negative /uL Urine RBC 5 0 - 3 /hpf Urine Microscopic WBC 13 H 0-3 /HPF Urine Squamous Epithelial Cells Few <5 /hpf Urine Bacteria None seen None Seen /hpf Urine Hyaline Casts Few 0 - 2 /lpf Urine Mucus Few None Seen Urine Yeast (Budding) Occasional None Seen /hpf Urine Sperm Present None Seen /hpf Urine Glucose Trace Normal mg/dL Lactic Acid Level 6.4 *H 0.4-2.0 mmol/L Troponin I High Sensitivity 43 </=54 ng/L Blood Gas Specimen Type Arterial Blood Gas Sample Site Right radial Blood Gas Patient Temperature 37.0 Arterial Blood Date Drawn [id number] Arterial Blood pH 7.428 7.350-7.450 Arterial Blood Partial Pressure CO2 24.0 L 35.0-48.0 mmHg Arterial Blood Partial Pressure O2 130.1 H 83.0-108.0 mmHg Arterial Blood HCO3 15.5 L 21.0-28.0 mmol/L Arterial Blood Oxygen Saturation 98.4 H 94.0-98.0 % Arterial Blood Base Excess -7.0 L -2.0-3.0 mmol/L Arterial Blood Oxyhemoglobin 97.6 94.0-98.0 % Arterial Blood Carboxyhemoglobin 0.3 L 0.5-1.5 % Arterial Blood Methemoglobin 0.5 0.0-1.5 % Dickson Test Yes Blood Gas Total Hemoglobin 13.20 L 13.5-17.5 g/dL Blood Gas Liter Flow 6.00 Blood Gas Modality Nasal cannula FiO2 % 44.0 Specimen Drawn By [employer] Teacher ellie arriaga Test 11/10/24 04:10 Range/Units White Blood Count 27.9 #H 4.4-10.8 10^3/uL Red Blood Count 4.56 4.5-5.90 10^6/uL Hemoglobin 13.0 #L 13.5-17.5 g/dL Hematocrit 37.6 #L 41.0-53.0 % Mean Corpuscular Volume 82.5 80.0-100.0 fL Mean Corpuscular Hemoglobin 28.5 28.0-32.0 pg Mean Corpuscular Hemoglobin Concent 34.6 32.0-36.0 g/dL Red Cell Distribution Width 13.1 11.8-14.3 % Platelet Count 158 140-450 10^3/uL Mean Platelet Volume 8.1 6.9-10.8 fL Neutrophils (%) (Auto) 37.0-80.0 % Lymphocytes (%) (Auto) 10.0-50.0 % Monocytes (%) (Auto) 0.0-12.0 % Basophils (%) (Auto) 0.0-2.0 % Neutrophils # (Auto) 1.6-8.6 10 ^3/uL Lymphocytes # (Auto) 0.4-5.4 10 ^3/uL Monocytes # (Auto) 0-1.3 10 ^3/uL Differential Total Cells Counted 100.0 100 Neutrophils % (Manual) 70 37.0-80.0 Band Neutrophils % (Manual) 10 Lymphocytes % (Manual) 6 L 10.0-50.0 Monocytes % (Manual) 4 0-12 Eosinophils % (Manual) 0 0-7 Basophils % (Manual) 0 0.0-2.0 Metamyelocytes % (manual) 9 Myelocytes % (Manual) 1 Promyelocytes % (Manual) 0 Blast Cells % (Manual) 0 Reactive Lymphocytes 0 Platelet Estimate Adequate Large Platelets Few Prothrombin Time 13.3 H 9.3-11.8 sec Prothrombin Time INR 1.29 H 0.9-1.15 Sodium Level 135 L 136-145 mmol/L Potassium Level 4.4 3.5-5.1 mmol/L Chloride Level 98 98-107 mmol/L Carbon Dioxide Level 21 20-31 mmol/L Anion Gap 16 H 5-15 Blood Urea Nitrogen 31 H 9-23 mg/dL Creatinine 3.38 #H 0.700-1.30 mg/dL Glomerular Filtration Rate Calc 25 >90 mL/min BUN/Creatinine Ratio 9.2 L 10.0-20.0 Serum Glucose 118 #H 74-106 mg/dL Calcium Level 8.0 L 8.7-10.4 mg/dL Total Bilirubin 1.1 H 0.2-1.0 mg/dL Aspartate Amino Transferase (AST) 30 13-40 U/L Alanine Aminotransferase (ALT) 47 H 7-40 U/L Alkaline Phosphatase 75 46-116 U/L B-Type Natriuretic Peptide 830.78 0-100 pg/mL Total Protein 5.8 5.7-8.2 g/dL Albumin 3.5 3.2-4.8 g/dL Lipase 20 12-53 U/L US KIDNEY HISTORY: issac COMPARISON: None available at the time of dictation TECHNIQUE: Sonographic grayscale and color doppler evaluation of the kidneys and urinary bladder was performed. FINDINGS: RIGHT: 12.1 x 5.9 x 5.3 cm. Normal cortical echogenicity and normal contour. No hydronephrosis. No focal renal mass lesion or shadowing stone LEFT: 12 x 5.8 x 5 cm. Normal cortical echogenicity and normal contour. No hyd ronephrosis. No focal renal mass lesion or shadowing stone BLADDER: The urinary bladder is well distended and appears unremarkable. Right and left ureteral jets are visualized. Postvoid bladder volume measures 18 mL within normal limits. OTHER: None IMPRESSION: Unremarkable retroperitoneal ultrasound without evidence for hydronephrosis. EXAM: XY CHEST XRAY 1 VIEW HISTORY: Post intubation, hypoxia COMPARISON: CHEST PORTABLE on DOS: 09/01/22, CXRP on DOS: 09/01/22 TECHNIQUE: Portable AP view of the chest was performed. FINDINGS: There is a right IJ central line with its tip in the right atrium. There is patchy infiltrate in the right mid to lower lung. The left lung is clear. No pneumothorax. The heart is not enlarged. There is lower thoracic levoscoliosis. IMPRESSION: 1. Right IJ central line present with its tip in the right atrium. 2. Right mid to lower lung pneumonia. 3. The left lung is clear. EXAM: CT HEAD WITHOUT CONTRAST HISTORY: Headache COMPARISON: None TECHNIQUE: Noncontrast axial CT images of the head were performed. Sagittal and coronal reformatted images were obtained. This CT exam was performed using 1 or more of the following dose reduction techniques: Automated exposure control, adjustment of the mA and/or kv according to patient size, or the use of iterative reconstruction techniques. Radiation Dose: CTDI volume is 56.33 mGy. Dose-length product is 1108.35 mGy*cm FINDINGS: No intracranial hemorrhage, mass, midline shift, hydrocephalus, or evidence of acute large vessel infarct. There is a tiny cavum septum pellucidum. The partially-visualized paranasal sinuses are clear. The bilateral mastoid air cells and middle ear spaces are clear. No cranial fracture or scalp edema. There is adenoid tonsillar hypertrophy. IMPRESSION: No acute intracranial process. EXAM: CT Chest, Abdomen and Pelvis Without Intravenous Contrast CLINICAL INDICATION: hypotensive, chest pain, short of breath, ABD PAIN TECHNIQUE: Axial computed tomography images of the chest, abdomen and pelvis without intravenous contrast. This CT exam was performed using one or more of the following dose reduction techniques: automated exposure control, adjustment of the mA and/or kV according to patient size, and/or use of iterative reconstruction technique. CONTRAST: COMPARISON: None FINDINGS: ARTIFACTS: Motion artifact. CHEST: LUNGS AND PLEURAL SPACES: Partial consolidation of the right lower lobe, likely pneumonia. No significant effusion. HEART: Unremarkable. No cardiomegaly. No significant pericardial effusion. No significant coronary artery calcifications. MEDIASTINUM: Apparent wall thickening of the distal esophagitis could relate t o esophagitis. Clinical correlation is recommended. Scattered mediastinal lymph nodes some of which are upper limits of normal in size and are most likely reactive lymph nodes. ABDOMEN: LIVER: Hepatomegaly with fatty infiltration. GALLBLADDER AND BILE DUCTS: Unremarkable. No calcified stones. No ductal dilation. PANCREAS: Unremarkable. No ductal dilation. SPLEEN: Unremarkable. No splenomegaly. ADRENALS: Unremarkable. No mass. KIDNEYS AND URETERS: Unremarkable. No obstructing stones. No hydronephrosis. STOMACH AND BOWEL: Unremarkable. No obstruction. No mucosal thickening. PELVIS: APPENDIX: No findings to suggest acute appendicitis. BLADDER: Unremarkable. No stones. REPRODUCTIVE: Unremarkable as visualized. CHEST, ABDOMEN and PELVIS: INTRAPERITONEAL SPACE: Unremarkable. No significant fluid collection. No free air. BONES/JOINTS: Unremarkable. No acute fracture. No dislocation. SOFT TISSUES: Unremarkable. VASCULATURE: Unremarkable. No aortic aneurysm. LYMPH NODES: See above. OTHER FINDINGS: . . IMPRESSION: 1. Apparent wall thickening of the distal esophagitis could relate to esophagitis. Clinical correlation is recommended. 2. Partial consolidation of the right lower lobe, likely pneumonia. 3. Scattered mediastinal lymph nodes some of which are upper limits of normal in size and are most likely reactive lymph nodes. 4. Hepatomegaly with fatty infiltration. Assessment/Plan Assessment/Plan Assessment Acute hypoxemic respiratory failure Lactic acidosis likely due to sepsis Septic shock UTI ISSAC Hyperbilirubinemia Pneumonia Esophagitis Hepatomegaly Tobacco use Marijuana use Meth use ETOH use Plan Admit to ICU IV antibiotics-vancomycin +Zosyn Antiemetics Pain Management Vasopressor to keep maps greater than 65 Sodium bicarb drip IV fluids CT abdomen and pelvis CT head CT chest Blood cultures Lipase ABG Manual differential EKG Troponin negative Chest x-ray ABG UA Flu test PT INR Lactic UDS COVID test BNP DVT prophylaxis-Lovenox Nephro consult Patient reports he does not take any home medications PUD prophylaxis-Protonix Discussed plan of care with patient and nurse Counseled patient on cessation of polysubstance abuse Counseled patient on cessation of tobacco use Counseled patient on ETOH use Social work-homelessness Plan discussed with: Patient My Orders Orders - GOPI HERNANDEZ [employer] Procedure Category Date Status Time Vancomycin Per PHA 11/10/24 Logged Pharmacy 10:45 Piperacillin-Tazob PHA 11/10/24 Logged 3.375gm (Zosyn 3.375g 14:00 *[facility] CONS 11/10/24 Transmitted -[place] 10:42 Allergies ILZANDRO 11/10/24 In Process 10:42 Code Status CODE 11/10/24 Transmitted 10:42 Sodium Chloride 0.9% PHA 11/10/24 Logged 10:45 Ondansetron Hcl PHA 11/10/24 Logged (Zofran) 10:45 Complete Blood Count LAB 11/11/24 Verified 04:00 Comprehensive LAB 11/11/24 Verified Metabolic Panel 04:00 Cardiac DIET 11/10/24 Transmitted Diet-2gna,Lofat,Lochol Lunch Enoxaparin Sodium PHA 11/11/24 Logged (Lovenox) 10:00 Acetaminophen Tablet PHA 11/10/24 Logged (Tylenol Tablet) 10:45 Admit ADMIT 11/10/24 Transmitted 10:42 Nitroglycerin PHA 11/10/24 Logged Sublingual (Ntrostat 10:45 Morphine Sulfate PHA 11/10/24 Logged Injection 10:45 Stat Ekg For Chest [facility] 11/10/24 In Process Pain 10:42 Notify Md Of Changes LIZANDRO 11/10/24 In Process From Base 10:42 Learn To Swim Instructor For LIZANDRO 11/10/24 In Process 24 Hours 10:42 Emergency Dysrhythmia [facility] 11/10/24 In Process Protocol 10:42 Rhythm Strips Once LIZANDRO 11/10/24 In Process Every Shift 10:42 Oxygen By Nasal RT 11/10/24 Transmitted Cannula 10:42 D5w 5% (Dextrose 5%) PHA 11/10/24 Logged W/Sodium Bicarb 50m 10:45 Date of Service: Nov 10, 2024 Billing Provider: GOPI HERNANDEZ Common Visit Codes: [id number] INP/OBS CARE (HIGH) GOPI HERNANDEZ Nov 10, 2024 10:59
[2024-11-10 11:10] LABS: COVID19 ANTIGEN SOFIA FIA NEGATIVE (NEGATIVE); Rapid Influenza A Negative (Negative); Rapid Influenza B Negative (Negative)
--- NOTE | 2024-11-10 13:57 | DVHINCON2 ---
Date of service: Nov 10, 2024 Referring Physician NIKI HERNANDEZ Reason for Consultation Acute kidney injury History of Present Illness Patient is a 29-year-old male with past medical history of methamphetamine abuse who is admitted for abdominal pain associated with nausea vomiting found to be in septic shock with right lower lobe pneumonia. On admission patient found to have elevated BUN creatinine nephrology is consulted for acute kidney injury Past Medical History Methamphetamine abuse Past Surgical History Patient denies Allergies: Coded Allergies: NO KNOWN ALLERGIES (Unverified , 09/01/22) Current Medications Current Medications Medications (Trade) Dose Ordered Sig/Trupti Route PRN Reason Start Time Stop Time Status Last Admin Norepinephrine Bitartrate 250 ml @ 3.75 mls/hr Q24H IV 11/10/24 05:15 11/10/24 05:31 Vancomycin HCl 0 ml @ 0 mls/hr UD IV 11/10/24 10:45 Piperacillin Sod/ Tazobactam Sod 100 ml @ 25 mls/hr Q8HR IV 11/10/24 14:00 11/10/24 14:01 Sodium Chloride 1,000 ml @ 120 mls/hr Q8H20M IV 11/10/24 10:45 11/10/24 14:01 Ondansetron HCl (Zofran) 4 mg Q4HP PRN IV NAUSEA / VOMITING 11/10/24 10:45 Enoxaparin Sodium (Lovenox) 30 mg DAILY SC 11/11/24 10:00 Acetaminophen (Tylenol Tablet) 650 mg Q6HP PRN PO PAIN SCALE 1-3 OR TEMP>100.4 11/10/24 10:45 Nitroglycerin (Ntrostat Sublingual) 0.4 mg Q5MINP PRN SL FOR CHEST PAIN 11/10/24 10:45 Morphine Sulfate 2 mg Q30M PRN IV FOR CHEST PAIN 11/10/24 10:45 Sodium Bicarbonate 50 ml/ Dextrose 1,050 ml @ 100 mls/hr [id number] IV 11/10/24 10:45 11/10/24 14:21 Pantoprazole Sodium (Protonix) 40 mg DAILY IV 11/10/24 11:00 11/10/24 14:00 Review of Systems All 12 item review of systems reviewed with the patient nonsignificant except what is mentioned in the history of present illness H&P Exam Vital Signs/I&O Vital Sign Date Time Temp Pulse Resp B/P (MAP) Pulse Ox O2 Delivery O2 Flow Rate FiO2 11/10/24 12:45 113 20 98/65 (76) 97 11/10/24 10:00 99.0 99.0 11/10/24 08:00 Room Air* 0 21 Intake and Output 11/09/24 11/10/24 19:00 07:00 Intake Total 1575.7500 ml Balance 1575.7500 ml Intake IV Total 1575.7500 ml Physical Exam Patient is awake and alert Patient appears in no acute distress Lungs decreased breath sounds in the right lower lung Cardiac exam regular rate and rhythm GI epigastric tenderness 1+ normal Extremities no clubbing cyanosis or edema Neuro nonfocal Labs/Diagnostic Data Labs/Diagnostic Data Laboratory Tests Test 11/10/24 10:30 11/10/24 08:45 11/10/24 06:49 11/10/24 05:00 Range/Units Influenza Type A Antigen Negative Negative Influenza Type B Antigen Negative Negative SARS-CoV-2 Antigen (Rapid) Negative NEGATIVE Urine Color Yellow Yellow Urine Clarity Turbid H Clear Urine pH 5.0 5.0-9.0 Urine Specific [place] 1.025 1.001-1.035 Urine Protein 1+ H Negative Urine Ketones 1+ H Negative Urine Blood 1+ H Negative /uL Urine Nitrite Negative Negative Urine Bilirubin Negative Negative Urine Urobilinogen Normal Negative mg/dL Urine Leukocyte Esterase Trace Negative /uL Urine RBC 5 0 - 3 /hpf Urine Microscopic WBC 13 H 0-3 /HPF Urine Squamous Epithelial Cells Few <5 /hpf Urine Bacteria None seen None Seen /hpf Urine Hyaline Casts Few 0 - 2 /lpf Urine Mucus Few None Seen Urine Yeast (Budding) Occasional None Seen /hpf Urine Sperm Present None Seen /hpf Urine Glucose Trace Normal mg/dL Lactic Acid Level 6.4 *H 0.4-2.0 mmol/L Troponin I High Sensitivity 43 15 </=54 ng/L Test 11/10/24 04:25 11/10/24 04:10 Range/Units Blood Gas Specimen Type Arterial Blood Gas Sample Site Right radial Blood Gas Patient Temperature 37.0 Arterial Blood Date Drawn [id number] Arterial Blood pH 7.428 7.350-7.450 Arterial Blood Partial Pressure CO2 24.0 L 35.0-48.0 mmHg Arterial Blood Partial Pressure O2 130.1 H 83.0-108.0 mmHg Arterial Blood HCO3 15.5 L 21.0-28.0 mmol/L Arterial Blood Oxygen Saturation 98.4 H 94.0-98.0 % Arterial Blood Base Excess -7.0 L -2.0-3.0 mmol/L Arterial Blood Oxyhemoglobin 97.6 94.0-98.0 % Arterial Blood Carboxyhemoglobin 0.3 L 0.5-1.5 % Arterial Blood Methemoglobin 0.5 0.0-1.5 % Dickson Test Yes Blood Gas Total Hemoglobin 13.20 L 13.5-17.5 g/dL Blood Gas Liter Flow 6.00 Blood Gas Modality Nasal cannula FiO2 % 44.0 Specimen Drawn By Maggi arriaga White Blood Count 27.9 #H 4.4-10.8 10^3/uL Red Blood Count 4.56 4.5-5.90 10^6/uL Hemoglobin 13.0 #L 13.5-17.5 g/dL Hematocrit 37.6 #L 41.0-53.0 % Mean Corpuscular Volume 82.5 80.0-100.0 fL Mean Corpuscular Hemoglobin 28.5 28.0-32.0 pg Mean Corpuscular Hemoglobin Concent 34.6 32.0-36.0 g/dL Red Cell Distribution Width 13.1 11.8-14.3 % Platelet Count 158 140-450 10^3/uL Mean Platelet Volume 8.1 6.9-10.8 fL Neutrophils (%) (Auto) 37.0-80.0 % Lymphocytes (%) (Auto) 10.0-50.0 % Monocytes (%) (Auto) 0.0-12.0 % Basophils (%) (Auto) 0.0-2.0 % Neutrophils # (Auto) 1.6-8.6 10 ^3/uL Lymphocytes # (Auto) 0.4-5.4 10 ^3/uL Monocytes # (Auto) 0-1.3 10 ^3/uL Differential Total Cells Counted 100.0 100 Neutrophils % (Manual) 70 37.0-80.0 Band Neutrophils % (Manual) 10 Lymphocytes % (Manual) 6 L 10.0-50.0 Monocytes % (Manual) 4 0-12 Eosinophils % (Manual) 0 0-7 Basophils % (Manual) 0 0.0-2.0 Metamyelocytes % (manual) 9 Myelocytes % (Manual) 1 Promyelocytes % (Manual) 0 Blast Cells % (Manual) 0 Reactive Lymphocytes 0 Platelet Estimate Adequate Large Platelets Few Prothrombin Time 13.3 H 9.3-11.8 sec Prothrombin Time INR 1.29 H 0.9-1.15 Sodium Level 135 L 136-145 mmol/L Potassium Level 4.4 3.5-5.1 mmol/L Chloride Level 98 98-107 mmol/L Carbon Dioxide Level 21 20-31 mmol/L Anion Gap 16 H 5-15 Blood Urea Nitrogen 31 H 9-23 mg/dL Creatinine 3.38 #H 0.700-1.30 mg/dL Glomerular Filtration Rate Calc 25 >90 mL/min BUN/Creatinine Ratio 9.2 L 10.0-20.0 Serum Glucose 118 #H 74-106 mg/dL Lactic Acid Level 8.4 *H 0.4-2.0 mmol/L Calcium Level 8.0 L 8.7-10.4 mg/dL Phosphorus Level 5.2 H 2.4-5.1 mg/dL Magnesium Level 1.0 L 1.6-2.6 mg/dL Total Bilirubin 1.1 H 0.2-1.0 mg/dL Aspartate Amino Transferase (AST) 30 13-40 U/L Alanine Aminotransferase (ALT) 47 H 7-40 U/L Alkaline Phosphatase 75 46-116 U/L Troponin I High Sensitivity 14 </=54 ng/L B-Type Natriuretic Peptide 830.78 0-100 pg/mL Total Protein 5.8 5.7-8.2 g/dL Albumin 3.5 3.2-4.8 g/dL Lipase 20 12-53 U/L Vitamin D 25-Hydroxy 9.1 L 30.0-100 ng/mL Parathyroid Hormone (Intact) 96.9 H 18.4-80.1 pg/mL Assessment Acute kidney injury superimposed Chronic Kidney Disease secondary hemodynamic mediated Right lower lobe pneumonia Septic shock Esophagitis Fatty liver Hyponatremia due to dehydration Methamphetamine abuse Recommendations Closely monitor fluid and electrolytes Avoid nephrotoxic medications Strict I&Os IV fluid hydration Check urine electrolytes and urine protein excretion Check kidney ultrasound IV antibiotics GI consult Pulmonary consult We will continue to follow Patient seen and examined by myself in the ER bed to. I discussed my plan of care with the patient and primary nurse at the bedside I would like to thank Niki for the consult, will follow up Plan discussed with: Patient GOPAL VICTORIA MD Nov 10, 2024 13:57
[2024-11-10] MEDS: PANTOPRAZOLE 40 MG/10 ML VIAL INJ IV SCH (14:00)
[2024-11-10] MEDS: SODIUM CHLORIDE 0.9% 1,000 ML IV SCH (14:01)
[2024-11-10] MEDS: PIPERACILLIN-TAZOB 3.375GM 100 ML IV SCH (14:01)
[2024-11-10] MEDS: SODIUM BICARB 50mEq/50ml Vial 50 ML in D5W 5% 1,000 ML IV SCH (14:21)
[2024-11-10 14:52] LABS: Phosphorus 5.2 mg/dL (2.4-5.1)
--- NOTE | 2024-11-10 15:01 | DVH ---
US KIDNEY HISTORY: tahmina COMPARISON: None available at the time of dictation TECHNIQUE: Sonographic grayscale and color doppler evaluation of the kidneys and urinary bladder was performed. FINDINGS: RIGHT: 12.1 x 5.9 x 5.3 cm. Normal cortical echogenicity and normal contour. No hydronephrosis. No fo bryant renal mass lesion or shadowing stone LEFT: 12 x 5.8 x 5 cm. Normal cortical echogenicity and normal contour. No hydronephrosis. No focal r enal mass lesion or shadowing stone BLADDER: The urinary bladder is well distended and appears unremarkable. Right and left ureteral jets are visualized. Postvoid bladder volume measures 18 mL within normal limits. OTHER: None IMPRESSION: Unremarkable retroperitoneal ultrasound without evidence for hydronephrosis. HS:Y
[2024-11-10 15:37] LABS: Protein, Urine 103.7 mg/dL (1-14)
[2024-11-10 15:39] LABS: Creatinine, Urine 218.45 mg/dL (30.0-125.0)
[2024-11-10 15:40] LABS: Creatinine, Urine 224.05 mg/dL (30.0-125.0); Urine Protein/Creatinine Ratio 0.46
[2024-11-10 15:51] LABS: Cannabinoid Screen, Urine Neg (NEGATIVE)
[2024-11-10 15:52] LABS: Amphetamine Screen, Urine Pos (NEGATIVE); Barbiturate Scree,Urine Neg (NEGATIVE); Benzodiazephine Screen, Urine Neg (NEGATIVE); Cocaine Screen, Urine Neg (NEGATIVE); Opiate Scree,Urine Neg (NEGATIVE); Phencyclidine Screen, Urine Neg (NEGATIVE)
[2024-11-10] MEDS: MAGNESIUM SULFATE 1GM/100ML 100 ML IV SCH (17:15)
[2024-11-11] VITALS (88 sets, daily range): BP systolic 89–126; BP diastolic 42–86; PULSE 62–112; RESP 9–36; TEMP 98.4–99.6; O2SAT 92–100
[2024-11-11] MEDS: ACETAMINOPHEN 325 MG TAB PO PRN (00:38)
[2024-11-11] MEDS: MELATONIN 5 MG TAB PO ONE ×2 (01:06→22:07)
[2024-11-11] MEDS: traMADol HCL 50 MG TAB PO ONE (01:09)
[2024-11-11 05:05] LABS: Hematocrit 34.8 % (41.0-53.0); Hemoglobin 12.2 g/dL (13.5-17.5); Mean Corpuscular Volume 79.9 fL (80.0-100.0); Platelet Count (auto) 146 10^3/uL (140-450); Red Blood Cells 4.35 10^6/uL (4.5-5.90); Red Cell Distribution Width 13.4 % (11.8-14.3); White Blood Cell 19.7 10^3/uL (4.4-10.8)
[2024-11-11 05:20] LABS: Basophils % (manual) 0 (0.0-2.0); Blast Cells 0; Eosinophils % (manual) 0 (0-7); Monocytes % (manual) 0 (0-12); Myelocytes % 0; Promyelocytes % 0
[2024-11-11 05:52] LABS: Alkaline Phosphatase 63 U/L (46-116); Anion Gap 7 (5-15); BUN/Creatinine Ratio 16.1 (10.0-20.0); Bilirubin, Total 0.7 mg/dL (0.2-1.0); Blood Urea Nitrogen 15 mg/dL (9-23); Carbon Dioxide 27 mmol/L (20-31); Chloride 104 mmol/L (98-107); Sodium 138 mmol/L (136-145)
[2024-11-11 06:06] LABS: Alanine Aminotransferase 52 U/L (7-40); Albumin 3.2 g/dL (3.2-4.8); Aspartate Aminotransferase 54 U/L (13-40); Glucose 168 mg/dL (74-106); Total Protein 5.3 g/dL (5.7-8.2)
[2024-11-11 06:39] LABS: Band Neutrophils % (manual) 20; Lymphocytes % (manual) 16 (10.0-50.0); Metamyelocytes % 3; Reactive Lymphocytes 3
[2024-11-11 06:40] LABS: Large Platelets FEW; Platelet Estimate Adequate
[2024-11-11] MEDS: POTASSIUM CHL 20MEQ/50ML 50 ML IV SCH (06:57)
--- NOTE | 2024-11-11 08:20 | DVH ---
EXAM: XY CHEST PORTABLE Indication: pain, PNA Technique: Single frontal view of the chest was obtained Comparison: XY CHEST XRAY 1 VIEW on DOS: 11/10/24, CHEST PORTABLE on DOS: 09/01/22, CXRP on DOS: 3 FINDINGS: Lines and Tubes: Right internal jugular central venous catheter tip projects over the right atrium. Lungs: Right interstitial opacities. Pleura: No effusion. No pneumothorax. Cardiomediastinal contours: Unremarkable Bones: No acute osseous abnormality. IMPRESSION: Right interstitial opacities.
--- NOTE | 2024-11-11 09:29 | DVHPN2 ---
Progress Note Date Seen: Nov 11, 2024 Medical Necessity Reason Pt with a Central, PICC or Fol: No Subjective Patient reports: No new complaints Other Systems: Patient seen and examined by myself today in follow-up Objective vital signs Vital Sign Date Time Temp Pulse Resp B/P (MAP) Pulse Ox O2 Delivery O2 Flow Rate FiO2 11/11/24 06:27 18 97 Nasal Cannula* 2 28 11/11/24 06:00 79 11/11/24 05:45 113/50 (71) 11/11/24 04:00 99.3 99.3 Total Intake and Output 11/10/24 11/10/24 11/11/24 15:00 23:00 07:00 Intake Total 708.75 ml 2071.25 ml 2026.25 ml Output Total 2600 ml Balance 708.75 ml 2071.25 ml -573.75 ml medications Current Medications Medications Dose Ordered Sig/Trupti Route Start Time Stop Time Status Last Admin Dose Admin Norepinephrine Bitartrate 250 ml @ 3.75 mls/hr Q24H IV 11/10/24 05:15 11/10/24 05:31 3.75 MLS/HR Vancomycin HCl 0 ml @ 0 mls/hr UD IV 11/10/24 10:45 Piperacillin Sod/ Tazobactam Sod 100 ml @ 25 mls/hr Q8HR IV 11/10/24 14:00 11/11/24 06:37 25 MLS/HR Sodium Chloride 1,000 ml @ 120 mls/hr Q8H20M IV 11/10/24 10:45 11/10/24 21:59 120 MLS/HR Ondansetron HCl 4 mg Q4HP PRN IV 11/10/24 10:45 Enoxaparin Sodium 30 mg DAILY SC 11/11/24 10:00 Acetaminophen 650 mg Q6HP PRN PO 11/10/24 10:45 11/11/24 00:38 650 MG Nitroglycerin 0.4 mg Q5MINP PRN SL 11/10/24 10:45 Morphine Sulfate 2 mg Q30M PRN IV 11/10/24 10:45 Sodium Bicarbonate 50 ml/ Dextrose 1,050 ml @ 100 mls/hr [id number] IV 11/10/24 10:45 11/11/24 01:04 100 MLS/HR Pantoprazole Sodium 40 mg DAILY IV 11/10/24 11:00 11/10/24 14:00 40 MG Potassium Chloride 50 ml @ 25 mls/hr Q2H IV 11/11/24 06:45 11/11/24 10:44 11/11/24 07:37 25 MLS/HR Examination: LUNGS:Normal, CVS:Normal, MSK:Normal laboratory and microbiology Laboratory Tests 11/11/24 04:45 Test 11/11/24 04:45 Range/Units Serum Glucose 168 H 74-106 mg/dL Microbiology Date/Time Source Procedure Growth Status 11/10/24 05:00 Blood Blood Culture - Preliminary Resulted Problem List/Assessment/Plan Problem List/Assessment/Plan Acute kidney injury superimposed Chronic Kidney Disease secondary hemodynamic mediated Right lower lobe pneumonia Septic shock Esophagitis Fatty liver Hyponatremia due to dehydration Polysubstance abuse Hypokalemia Hypomagnesemia Recommendations Kidney function is improving Increased urine output Hyponatremia resolved Strict I&Os IV fluid hydration kidney ultrasound reported within normal limit KCL replacement Magnesium sulfate IV piggyback IV antibiotics We will continue to follow Plan discussed with: Patient My Orders My Orders Orders - GOPAL VICTORIA MD Procedure Category Date Status Time Kidney US 11/10/24 Resulted 13:52 Hepatitis C Antibody LAB 11/10/24 In Process 13:52 Hepatitis B Surface LAB 11/10/24 In Process Antigen 13:52 Ns W Potassium 20meq PHA 11/11/24 Verified 09:30 Magnesium Edy PHA 11/11/24 Verified 10:00 GOPAL VICTORIA MD Nov 11, 2024 09:29
[2024-11-11] MEDS: SOD CHL 0.9%/ KCL 20MEQ 1,000 ML IV SCH (09:30)
[2024-11-11] MEDS: ENOXAPARIN SOD 30 MG/0.3 ML SYRINGE SC SCH (09:44)
[2024-11-11 12:03] LABS: Hepatitis B Surface Antigen Negative (Negative); Hepatitis C Antibody Negative (Negative)
--- NOTE | 2024-11-11 12:22 | DVHPN2 ---
Subjective The patient is seen and examined at bedside. Very sleepy. Reviewed: Care Plan, H&P, Labs, Medications, Previous Orders, Radiology Changes from previous H/P or p: No Changes Gastrointestinal: Vomiting, Abdominal Pain, Diarrhea Musculoskeletal: other (Right flank pain) Objective Vitals Vital Signs Date Time Temp Pulse Resp B/P (MAP) Pulse Ox O2 Delivery O2 Flow Rate FiO2 11/11/24 09:28 94/57 11/11/24 06:27 18 97 Nasal Cannula* 2 28 11/11/24 06:00 79 11/11/24 04:00 99.3 99.3 Intake/Output Intake and Output 11/11/24 07:00 Intake Total 4806.25 ml Output Total 2600 ml Balance 2206.25 ml Intake Oral 600 ml IV Total 4206.25 ml Output Urine Total 2600 ml # Bowel Movements 1 General Appearance: Alert, No acute distress HEENT: Atraumatic, PERRLA, EOMI, Mucous membr. moist/pink Neck: Supple Lungs: Clear to auscultation, Normal air movement Cardiovascular: Regular rate, Normal S1, Normal S2, No murmurs, Gallops, Rubs Abdomen: Normal bowel sounds, Soft Neuro: Cranial nerves 3-12 NL Psych/Mental Status: Mental status NL Medications Current Medications Medications Dose Ordered Sig/Trupti Route Start Time Stop Time Status Last Admin Dose Admin Norepinephrine Bitartrate 250 ml @ 3.75 mls/hr Q24H IV 11/10/24 05:15 11/11/24 09:28 15 MLS/HR Vancomycin HCl 0 ml @ 0 mls/hr UD IV 11/10/24 10:45 Piperacillin Sod/ Tazobactam Sod 100 ml @ 25 mls/hr Q8HR IV 11/10/24 14:00 11/11/24 06:37 25 MLS/HR Ondansetron HCl 4 mg Q4HP PRN IV 11/10/24 10:45 Enoxaparin Sodium 30 mg DAILY SC 11/11/24 10:00 11/11/24 09:44 30 MG Acetaminophen 650 mg Q6HP PRN PO 11/10/24 10:45 11/11/24 00:38 650 MG Nitroglycerin 0.4 mg Q5MINP PRN SL 11/10/24 10:45 Morphine Sulfate 2 mg Q30M PRN IV 11/10/24 10:45 Sodium Bicarbonate 50 ml/ Dextrose 1,050 ml @ 100 mls/hr [id number] IV 11/10/24 10:45 11/11/24 01:04 100 MLS/HR Pantoprazole Sodium 40 mg DAILY IV 11/10/24 11:00 11/11/24 09:45 40 MG Potassium Chloride/Sodium Chloride 1,000 ml @ 100 mls/hr Q10H IV 11/11/24 09:30 UNV Magnesium Sulfate/ Dextrose 100 ml @ 100 mls/hr Q1HR IV 11/11/24 10:00 11/11/24 11:59 UNV Laboratory Results Laboratory Tests 11/11/24 04:45 Chemistry Test 11/11/24 04:45 Albumin 3.2 g/dL (3.2-4.8) Calcium Level 8.0 mg/dL (8.7-10.4) L Magnesium Level 2.3 mg/dL (1.6-2.6) # Total Protein 5.3 g/dL (5.7-8.2) L LFT Test 11/11/24 04:45 Alanine Aminotransferase (ALT) 52 U/L (7-40) H Alkaline Phosphatase 63 U/L (46-116) Aspartate Amino Transferase (AST) 54 U/L (13-40) H Total Bilirubin 0.7 mg/dL (0.2-1.0) Urinalysis Test 11/10/24 08:45 Urine Color Yellow (Yellow) Urine Clarity Turbid (Clear) H Urine pH 5.0 (5.0-9.0) Urine Specific [place] 1.025 (1.001-1.035) Urine Protein 1+ (Negative) H Urine Ketones 1+ (Negative) H Urine Blood 1+ /uL (Negative) H Urine Nitrite Negative (Negative) Urine Bilirubin Negative (Negative) Urine Urobilinogen Normal mg/dL (Negative) Urine Leukocyte Esterase Trace /uL (Negative) Urine RBC 5 /hpf (0 - 3) Urine Microscopic WBC 13 /HPF (0-3) H Urine Squamous Epithelial Cells Few /hpf (<5) Urine Bacteria None seen /hpf (None Seen) Urine Hyaline Casts Few /lpf (0 - 2) Urine Mucus Few (None Seen) Urine Yeast (Budding) Occasional /hpf (None Urine Sperm Present /hpf (None Seen) Urine Osmolality 491 mOsm/kg Urine Creatinine 224.05 mg/dL (30.0-125.0) H Urine Protein/Creatinine Ratio 0.46 Urine Sodium 19 mmol/L (40-220) L Urine Glucose Trace mg/dL (Normal) Urine Total Protein 103.7 mg/dL (1-14) H Microbiology Microbiology Date/Time Source Procedure Growth Status 11/10/24 05:00 Blood Blood Culture - Preliminary Resulted Labs and/or images reviewed: Labs reviewed by me Assessment/Plan Assessment/Plan Acute hypoxemic respiratory failure Lactic acidosis likely due to sepsis Septic shock UTI ISSAC Hyperbilirubinemia Pneumonia Esophagitis Hepatomegaly Tobacco use Marijuana use Meth use ETOH use Plan Continuing current management Waiting to transfer to ICU Continuing with IV antibiotics-vancomycin +Zosyn Antiemetics with Zofran Continuing with [place] and morphine for pain control Vasopressor to keep maps greater than 65 Sodium bicarb drip IV fluids CT abdomen and pelvis CT head CT chest Blood cultures Counseled patient on cessation of tobacco use more than 10 minute Counseled patient on ETOH use more than 15 minute Social work-homelessness Discharge planing. This medical document was created using an electronic medical record system with [employer] direct computerized dictation system. Although this document has been carefully reviewed, there may still be some phonetic and typographical errors. These areas are purely typographical due to imperfections of the software programs, and do not reflect any compromise in the patient's medical care. Plan discussed with: Patient Date of Service: Nov 11, 2024 Billing Provider: LAMAR CLEMENT MD Common Visit Codes: [id number] INP/OBS CARE(HIGH) LAMAR CLEMENT MD Nov 11, 2024 12:22
[2024-11-11] MEDS: MORPHINE SULFATE INJ 2 MG/ml SYRG IV PRN (14:49)
[2024-11-11] MEDS: VANCOMYCIN 1GM/200ML PM 200 ML IV ONE (14:55)
[2024-11-11] MEDS: MAGNESIUM SULFATE 1GM/100ML 100 ML IV SCH (15:11)
[2024-11-11] MEDS: VANCOMYCIN 1GM/200ML PM 200 ML IV SCH (21:01)
[2024-11-12] VITALS (72 sets, daily range): BP systolic 84–143; BP diastolic 36–98; PULSE 74–120; RESP 14–38; TEMP 99–99.5; O2SAT 88–100
[2024-11-12] MEDS: LORazepam 2MG/ML-1ML VIAL IV ONE ×2 (01:16→04:36)
--- NOTE | 2024-11-12 11:37 | DVHPN2 ---
Progress Note Date Seen: Nov 12, 2024 Medical Necessity Reason Pt with a Central, PICC or Fol: No Subjective Patient reports: No new complaints Other Systems: Patient seen and examined by myself today in follow-up, patient remained in the ER Objective vital signs Vital Sign Date Time Temp Pulse Resp B/P (MAP) Pulse Ox O2 Delivery O2 Flow Rate FiO2 11/12/24 11:30 81 17 98/57 (71) 96 11/12/24 10:27 Nasal Cannula* 2 28 11/12/24 08:00 99.2 99.2 Total Intake and Output 11/11/24 11/11/24 11/12/24 15:00 23:00 07:00 Intake Total 1377.50 ml 1122.5 ml 1125 ml Output Total 800 ml 2350 ml Balance 1377.50 ml 322.5 ml -1225 ml medications Current Medications Medications Dose Ordered Sig/Trupti Route Start Time Stop Time Status Last Admin Dose Admin Norepinephrine Bitartrate 250 ml @ 3.75 mls/hr Q24H IV 11/10/24 05:15 11/12/24 09:21 7.5 MLS/HR Vancomycin HCl 0 ml @ 0 mls/hr UD IV 11/10/24 10:45 Piperacillin Sod/ Tazobactam Sod 100 ml @ 25 mls/hr Q8HR IV 11/10/24 14:00 11/12/24 05:51 25 MLS/HR Ondansetron HCl 4 mg Q4HP PRN IV 11/10/24 10:45 Enoxaparin Sodium 30 mg DAILY SC 11/11/24 10:00 11/12/24 10:25 30 MG Acetaminophen 650 mg Q6HP PRN PO 11/10/24 10:45 11/11/24 00:38 650 MG Nitroglycerin 0.4 mg Q5MINP PRN SL 11/10/24 10:45 Morphine Sulfate 2 mg Q30M PRN IV 11/10/24 10:45 11/11/24 14:49 2 MG Pantoprazole Sodium 40 mg DAILY IV 11/10/24 11:00 11/12/24 10:24 40 MG Potassium Chloride/Sodium Chloride 1,000 ml @ 100 mls/hr Q10H IV 11/11/24 09:30 11/12/24 05:17 100 MLS/HR Vancomycin HCl 200 ml @ 200 mls/hr Q8H IV 11/11/24 21:00 11/12/24 04:44 200 MLS/HR Examination: LUNGS:Normal, CVS:Normal, MSK:Normal laboratory and microbiology Laboratory Tests 11/11/24 14:04 11/11/24 04:45 Test 11/11/24 04:45 Range/Units Serum Glucose 168 H 74-106 mg/dL Microbiology Date/Time Source Procedure Growth Status 11/10/24 05:00 Blood Blood Culture - Final Streptococcus pneumoniae Complete Problem List/Assessment/Plan Problem List/Assessment/Plan Acute kidney injury superimposed Chronic Kidney Disease secondary hemodynamic mediated Right lower lobe pneumonia Septic shock Esophagitis Fatty liver Hyponatremia due to dehydration Polysubstance abuse Hypokalemia Hypomagnesemia Recommendations Kidney function is improving Increased urine output Hyponatremia resolved Strict I&Os IV fluid hydration kidney ultrasound reported within normal limit KCL replacement Magnesium sulfate IV piggyback IV antibiotics We will continue to follow Plan discussed with: Patient GOPAL VICTORIA MD Nov 12, 2024 11:37
[2024-11-12] MEDS: POTASSIUM EFFERVESENT TAB 25 MEQ GT SCH (11:45)
[2024-11-12] MEDS: VANCOMYCIN 1.25GM/250ML 250 ML IV SCH (20:48)
[2024-11-12] MEDS: SODIUM CHLORIDE 0.9% 500 ML IV ONE (21:15)
[2024-11-12] MEDS: TEMAZEPAM 15 MG CAP PO ONE (21:52)
[2024-11-12] MEDS: ALBUMIN 25% 50 ML IV ONE (21:54)
[2024-11-13] VITALS (57 sets, daily range): BP systolic 94–143; BP diastolic 48–88; PULSE 75–111; RESP 12–37; TEMP 98.1–99.5; O2SAT 94–100
[2024-11-13] MEDS: HYDROcodone-ACET 5/325MG TAB PO ONE (04:27)
[2024-11-13 05:28] LABS: Hematocrit 36.5 % (41.0-53.0); Hemoglobin 12.4 g/dL (13.5-17.5); Mean Corpuscular Hemoglobin 27.6 pg (28.0-32.0); Mean Corpuscular Hgb Conc. 34.1 g/dL (32.0-36.0); Platelet Count (auto) 173 10^3/uL (140-450); Red Cell Distribution Width 13.6 % (11.8-14.3); White Blood Cell 16.2 10^3/uL (4.4-10.8)
[2024-11-13 05:32] LABS: Basophils % (manual) 0 (0.0-2.0); Blast Cells 0; Metamyelocytes % 0; Promyelocytes % 0; Reactive Lymphocytes 0
[2024-11-13 06:11] LABS: Potassium 4.3 mmol/L (3.5-5.1); Sodium 140 mmol/L (136-145)
[2024-11-13 06:12] LABS: Anion Gap 7 (5-15); Carbon Dioxide 25 mmol/L (20-31)
[2024-11-13 06:13] LABS: Calcium 8.7 mg/dL (8.7-10.4)
[2024-11-13 06:18] LABS: BUN/Creatinine Ratio 11.1 (10.0-20.0)
[2024-11-13 06:56] LABS: Band Neutrophils % (manual) 6; Eosinophils % (manual) 4 (0-7); Lymphocytes % (manual) 12 (10.0-50.0); Monocytes % (manual) 10 (0-12); Myelocytes % 2; Platelet Estimate Adequate; RBC Morphology Normal
[2024-11-13 07:06] LABS: Blood Urea Nitrogen 8 mg/dL (9-23); Chloride 108 mmol/L (98-107); Glucose 122 mg/dL (74-106)
[2024-11-13] MEDS: ENOXAPARIN SOD 40 MG/0.4 ML SYRINGE SC SCH (11:25)
[2024-11-13] MEDS: PIPERACILLIN-TAZOB 3.375GM 100 ML IV SCH (11:39)
--- NOTE | 2024-11-13 11:41 | DVHPN2 ---
Subjective The patient is seen and examined at bedside. Patient doing better. Vasopressor is weaning. Reviewed: Care Plan, H&P, Labs, Medications, Previous Orders, Radiology Changes from previous H/P or p: No Changes Gastrointestinal: Vomiting, Abdominal Pain, Diarrhea Musculoskeletal: other (Right flank pain) Objective Vitals Vital Signs Date Time Temp Pulse Resp B/P (MAP) Pulse Ox O2 Delivery O2 Flow Rate FiO2 11/13/24 11:15 90 16 117/65 (82) 96 11/13/24 08:00 Room Air* 0 21 11/13/24 04:00 99.4 99.4 Intake/Output Intake and Output 11/13/24 06:59 Intake Total 2676.25 ml Output Total 6500 ml Balance -3823.75 ml Intake Oral 1150 ml IV Total 1526.25 ml Output Urine Total 6500 ml # Bowel Movements 1 General Appearance: Alert, Oriented X3, Cooperative, No acute distress HEENT: Atraumatic, PERRLA, EOMI Neck: Supple Lungs: Clear to auscultation, Normal air movement Cardiovascular: Regular rate, Normal S1, Normal S2, No murmurs, Gallops, Rubs Abdomen: Normal bowel sounds, Soft, No tenderness Neuro: Cranial nerves 3-12 NL Psych/Mental Status: Mental status NL Medications Current Medications Medications Dose Ordered Sig/Trupti Route Start Time Stop Time Status Last Admin Dose Admin Norepinephrine Bitartrate 250 ml @ 3.75 mls/hr Q24H IV 11/10/24 05:15 11/12/24 09:21 7.5 MLS/HR Vancomycin HCl 0 ml @ 0 mls/hr UD IV 11/10/24 10:45 Ondansetron HCl 4 mg Q4HP PRN IV 11/10/24 10:45 Acetaminophen 650 mg Q6HP PRN PO 11/10/24 10:45 11/12/24 22:12 650 MG Nitroglycerin 0.4 mg Q5MINP PRN SL 11/10/24 10:45 Morphine Sulfate 2 mg Q30M PRN IV 11/10/24 10:45 11/12/24 14:37 2 MG Pantoprazole Sodium 40 mg DAILY IV 11/10/24 11:00 11/13/24 11:24 40 MG Potassium Chloride/Sodium Chloride 1,000 ml @ 100 mls/hr Q10H IV 11/11/24 09:30 11/12/24 16:04 100 MLS/HR Vancomycin HCl 250 ml @ 200 mls/hr Q8H IV 11/12/24 21:00 11/13/24 04:46 200 MLS/HR Enoxaparin Sodium 40 mg DAILY SC 11/13/24 10:00 11/13/24 11:25 40 MG Piperacillin Sod/ Tazobactam Sod 100 ml @ 25 mls/hr Q6HR IV 11/13/24 12:00 11/13/24 11:39 25 MLS/HR Laboratory Results Laboratory Tests 11/13/24 04:55 Chemistry Test 11/13/24 04:55 Calcium Level 8.7 mg/dL (8.7-10.4) Urinalysis Test 11/10/24 08:45 Urine Color Yellow (Yellow) Urine Clarity Turbid (Clear) H Urine pH 5.0 (5.0-9.0) Urine Specific [place] 1.025 (1.001-1.035) Urine Protein 1+ (Negative) H Urine Ketones 1+ (Negative) H Urine Blood 1+ /uL (Negative) H Urine Nitrite Negative (Negative) Urine Bilirubin Negative (Negative) Urine Urobilinogen Normal mg/dL (Negative) Urine Leukocyte Esterase Trace /uL (Negative) Urine RBC 5 /hpf (0 - 3) Urine Microscopic WBC 13 /HPF (0-3) H Urine Squamous Epithelial Cells Few /hpf (<5) Urine Bacteria None seen /hpf (None Seen) Urine Hyaline Casts Few /lpf (0 - 2) Urine Mucus Few (None Seen) Urine Yeast (Budding) Occasional /hpf (None Urine Sperm Present /hpf (None Seen) Urine Osmolality 491 mOsm/kg Urine Creatinine 224.05 mg/dL (30.0-125.0) H Urine Protein/Creatinine Ratio 0.46 Urine Sodium 19 mmol/L (40-220) L Urine Glucose Trace mg/dL (Normal) Urine Total Protein 103.7 mg/dL (1-14) H Microbiology Microbiology Date/Time Source Procedure Growth Status 11/10/24 05:00 Blood Blood Culture - Final Streptococcus pneumoniae Complete Labs and/or images reviewed: Labs reviewed by me Assessment/Plan Assessment/Plan Acute hypoxemic respiratory failure Lactic acidosis likely due to sepsis Septic shock UTI ISSAC Hyperbilirubinemia Pneumonia Esophagitis Hepatomegaly Tobacco use Marijuana use Meth use ETOH use Plan Continuing current management Waiting to transfer to ICU Continuing with IV antibiotics-vancomycin +Zosyn Antiemetics with Zofran Continuing with [place] and morphine for pain control Vasopressor to keep maps greater than 65 Sodium bicarb drip IV fluids CT abdomen and pelvis CT head CT chest Blood cultures Counseled patient on cessation of tobacco use more than 10 minute Counseled patient on ETOH use more than 15 minute Social work-homelessness Discharge planing. Plan discussed with: Patient Date of Service: Nov 13, 2024 Billing Provider: LAMAR CLEMENT MD Common Visit Codes: [id number] INP/OBS CARE(HIGH) LAMAR CLEMENT MD Nov 13, 2024 11:41
--- NOTE | 2024-11-13 11:41 | DVHPN2 ---
Subjective The patient is seen and examined at bedside. No change overnight. Remained confused and sleepy. Reviewed: Care Plan, H&P, Labs, Medications, Previous Orders, Radiology Changes from previous H/P or p: No Changes Gastrointestinal: Vomiting, Abdominal Pain, Diarrhea Musculoskeletal: other (Right flank pain) Objective Vitals Vital Signs Date Time Temp Pulse Resp B/P (MAP) Pulse Ox O2 Delivery O2 Flow Rate FiO2 11/13/24 11:15 90 16 117/65 (82) 96 11/13/24 08:00 Room Air* 0 21 11/13/24 04:00 99.4 99.4 Intake/Output Intake and Output 11/13/24 06:59 Intake Total 2676.25 ml Output Total 6500 ml Balance -3823.75 ml Intake Oral 1150 ml IV Total 1526.25 ml Output Urine Total 6500 ml # Bowel Movements 1 General Appearance: Alert, Oriented X3, Cooperative, No acute distress HEENT: Atraumatic, PERRLA, EOMI, Mucous membr. moist/pink Neck: Supple Lungs: Normal air movement Cardiovascular: Regular rate, Normal S1, Normal S2, No murmurs, Gallops Neuro: Cranial nerves 3-12 NL Psych/Mental Status: Mental status NL Medications Current Medications Medications Dose Ordered Sig/Trupti Route Start Time Stop Time Status Last Admin Dose Admin Norepinephrine Bitartrate 250 ml @ 3.75 mls/hr Q24H IV 11/10/24 05:15 11/12/24 09:21 7.5 MLS/HR Vancomycin HCl 0 ml @ 0 mls/hr UD IV 11/10/24 10:45 Ondansetron HCl 4 mg Q4HP PRN IV 11/10/24 10:45 Acetaminophen 650 mg Q6HP PRN PO 11/10/24 10:45 11/12/24 22:12 650 MG Nitroglycerin 0.4 mg Q5MINP PRN SL 11/10/24 10:45 Morphine Sulfate 2 mg Q30M PRN IV 11/10/24 10:45 11/12/24 14:37 2 MG Pantoprazole Sodium 40 mg DAILY IV 11/10/24 11:00 11/13/24 11:24 40 MG Potassium Chloride/Sodium Chloride 1,000 ml @ 100 mls/hr Q10H IV 11/11/24 09:30 11/12/24 16:04 100 MLS/HR Vancomycin HCl 250 ml @ 200 mls/hr Q8H IV 11/12/24 21:00 11/13/24 04:46 200 MLS/HR Enoxaparin Sodium 40 mg DAILY SC 11/13/24 10:00 11/13/24 11:25 40 MG Piperacillin Sod/ Tazobactam Sod 100 ml @ 25 mls/hr Q6HR IV 11/13/24 12:00 11/13/24 11:39 25 MLS/HR Laboratory Results Laboratory Tests 11/13/24 04:55 Chemistry Test 11/13/24 04:55 Calcium Level 8.7 mg/dL (8.7-10.4) Urinalysis Test 11/10/24 08:45 Urine Color Yellow (Yellow) Urine Clarity Turbid (Clear) H Urine pH 5.0 (5.0-9.0) Urine Specific [place] 1.025 (1.001-1.035) Urine Protein 1+ (Negative) H Urine Ketones 1+ (Negative) H Urine Blood 1+ /uL (Negative) H Urine Nitrite Negative (Negative) Urine Bilirubin Negative (Negative) Urine Urobilinogen Normal mg/dL (Negative) Urine Leukocyte Esterase Trace /uL (Negative) Urine RBC 5 /hpf (0 - 3) Urine Microscopic WBC 13 /HPF (0-3) H Urine Squamous Epithelial Cells Few /hpf (<5) Urine Bacteria None seen /hpf (None Seen) Urine Hyaline Casts Few /lpf (0 - 2) Urine Mucus Few (None Seen) Urine Yeast (Budding) Occasional /hpf (None Urine Sperm Present /hpf (None Seen) Urine Osmolality 491 mOsm/kg Urine Creatinine 224.05 mg/dL (30.0-125.0) H Urine Protein/Creatinine Ratio 0.46 Urine Sodium 19 mmol/L (40-220) L Urine Glucose Trace mg/dL (Normal) Urine Total Protein 103.7 mg/dL (1-14) H Microbiology Microbiology Date/Time Source Procedure Growth Status 11/10/24 05:00 Blood Blood Culture - Final Streptococcus pneumoniae Complete Labs and/or images reviewed: Labs reviewed by me Assessment/Plan Assessment/Plan Acute hypoxemic respiratory failure Lactic acidosis likely due to sepsis Septic shock UTI ISSAC Hyperbilirubinemia Pneumonia Esophagitis Hepatomegaly Tobacco use Marijuana use Meth use ETOH use Plan Continuing current management Waiting to transfer to ICU Continuing with IV antibiotics-vancomycin +Zosyn Antiemetics with Zofran Continuing with [place] and morphine for pain control Vasopressor to keep maps greater than 65 Sodium bicarb drip IV fluids CT abdomen and pelvis CT head CT chest Blood cultures Counseled patient on cessation of tobacco use more than 10 minute Counseled patient on ETOH use more than 15 minute Social work-homelessness Discharge planing. Plan discussed with: Patient Date of Service: Nov 12, 2024 Billing Provider: LAMAR CLEMENT MD Common Visit Codes: [id number] INP/OBS CARE(HIGH) LAMAR CLEMENT MD Nov 13, 2024 11:41
--- NOTE | 2024-11-13 13:00 | DVHPN2 ---
Progress Note Date Seen: Nov 13, 2024 Medical Necessity Reason Pt with a Central, PICC or Fol: No Subjective Patient reports: No new complaints Objective vital signs Vital Sign Date Time Temp Pulse Resp B/P (MAP) Pulse Ox O2 Delivery O2 Flow Rate FiO2 11/13/24 12:20 18 95 Room Air* 0 21 11/13/24 12:00 85 11/13/24 11:15 117/65 (82) 11/13/24 04:00 99.4 99.4 Total Intake and Output 11/12/24 11/12/24 11/13/24 15:00 23:00 07:00 Intake Total 1132.50 ml 836.25 ml 607.5 ml Output Total 3200 ml 3300 ml Balance 1132.50 ml -2363.75 ml -2692.5 ml medications Current Medications Medications Dose Ordered Sig/Trupti Route Start Time Stop Time Status Last Admin Dose Admin Norepinephrine Bitartrate 250 ml @ 3.75 mls/hr Q24H IV 11/10/24 05:15 11/12/24 09:21 7.5 MLS/HR Vancomycin HCl 0 ml @ 0 mls/hr UD IV 11/10/24 10:45 Ondansetron HCl 4 mg Q4HP PRN IV 11/10/24 10:45 Acetaminophen 650 mg Q6HP PRN PO 11/10/24 10:45 11/12/24 22:12 650 MG Nitroglycerin 0.4 mg Q5MINP PRN SL 11/10/24 10:45 Morphine Sulfate 2 mg Q30M PRN IV 11/10/24 10:45 11/12/24 14:37 2 MG Pantoprazole Sodium 40 mg DAILY IV 11/10/24 11:00 11/13/24 11:24 40 MG Potassium Chloride/Sodium Chloride 1,000 ml @ 100 mls/hr Q10H IV 11/11/24 09:30 11/12/24 16:04 100 MLS/HR Vancomycin HCl 250 ml @ 200 mls/hr Q8H IV 11/12/24 21:00 11/13/24 04:46 200 MLS/HR Enoxaparin Sodium 40 mg DAILY SC 11/13/24 10:00 11/13/24 11:25 40 MG Piperacillin Sod/ Tazobactam Sod 100 ml @ 25 mls/hr Q6HR IV 11/13/24 12:00 11/13/24 11:39 25 MLS/HR Examination: LUNGS:Normal, CVS:Normal, MSK:Normal laboratory and microbiology Laboratory Tests 11/13/24 04:55 Test 11/13/24 04:55 Range/Units Serum Glucose 122 H 74-106 mg/dL Microbiology Date/Time Source Procedure Growth Status 11/10/24 05:00 Blood Blood Culture - Final Streptococcus pneumoniae Complete Problem List/Assessment/Plan Problem List/Assessment/Plan Acute kidney injury superimposed Chronic Kidney Disease secondary hemodynamic mediated Right lower lobe pneumonia Septic shock Esophagitis Fatty liver Hyponatremia due to dehydration Polysubstance abuse Hypokalemia Hypomagnesemia Recommendations Kidney function resolved back to normal Increased urine output Hyponatremia resolved Strict I&Os IV fluid hydration kidney ultrasound reported within normal limit KCL replacement Magnesium sulfate IV piggyback IV antibiotics I will sign off this case, please reconsult as needed Thank you for the consult Plan discussed with: Patient GOPAL VICTORIA MD Nov 13, 2024 13:00
[2024-11-13] MEDS: LORazepam 2MG/ML-1ML VIAL IV PRN (14:00)
[2024-11-14] VITALS (8 sets, daily range): BP systolic 112–144; BP diastolic 64–82; PULSE 59–102; RESP 16–20; TEMP 97.7–99.2; O2SAT 95–98
[2024-11-14 07:27] LABS: Hematocrit 38.8 % (41.0-53.0); Hemoglobin 13.2 g/dL (13.5-17.5); Mean Corpuscular Hemoglobin 27.8 pg (28.0-32.0); Mean Corpuscular Volume 81.8 fL (80.0-100.0); Platelet Count (auto) 247 10^3/uL (140-450); Red Blood Cells 4.75 10^6/uL (4.5-5.90); Red Cell Distribution Width 13.2 % (11.8-14.3); White Blood Cell 13.3 10^3/uL (4.4-10.8)
[2024-11-14 07:30] LABS: Basophils % (manual) 0 (0.0-2.0); Blast Cells 0; Metamyelocytes % 0; Myelocytes % 0; Promyelocytes % 0; Reactive Lymphocytes 0
[2024-11-14 09:07] LABS: Band Neutrophils % (manual) 12; Eosinophils % (manual) 3 (0-7); Lymphocytes % (manual) 23 (10.0-50.0); Monocytes % (manual) 13 (0-12)
[2024-11-14 09:08] LABS: Platelet Estimate Adequate
[2024-11-15 01:00] VITALS: BP 110/63; PULSE 93; RESP 20; TEMP 99.2; O2SAT 94
[2024-11-15 05:00] VITALS: BP 104/65; PULSE 86; RESP 20; TEMP 99.1; O2SAT 96
[2024-11-15 07:52] LABS: Hematocrit 36.5 % (41.0-53.0); Hemoglobin 12.6 g/dL (13.5-17.5); Mean Corpuscular Hemoglobin 28.2 pg (28.0-32.0); Mean Corpuscular Hgb Conc. 34.6 g/dL (32.0-36.0); Mean Corpuscular Volume 81.6 fL (80.0-100.0); Platelet Count (auto) 337 10^3/uL (140-450); Red Blood Cells 4.48 10^6/uL (4.5-5.90); Red Cell Distribution Width 13.6 % (11.8-14.3)
[2024-11-15 08:00] VITALS: PULSE 84; PULSE 85; RESP 18; O2SAT 97
[2024-11-15 08:22] LABS: Basophils % (manual) 0 (0.0-2.0); Blast Cells 0; Promyelocytes % 0; Reactive Lymphocytes 0
[2024-11-15 08:23] LABS: Band Neutrophils % (manual) 2; Eosinophils % (manual) 2 (0-7); Lymphocytes % (manual) 24 (10.0-50.0); Metamyelocytes % 2; Monocytes % (manual) 10 (0-12); Myelocytes % 2; Platelet Estimate Adequate
[2024-11-15 08:24] LABS: RBC Morphology Normal
[2024-11-15 09:00] VITALS: BP 105/63; PULSE 85; RESP 18; TEMP 98.8; O2SAT 97
[2024-11-15] MEDS: VANCOMYCIN 1GM/200ML PM 200 ML IV SCH (10:15)
--- NOTE | 2024-11-15 12:49 | DVHPN2 ---
Reviewed: Care Plan, H&P, Labs, Medications, Previous Orders, Radiology Changes from previous H/P or p: No Changes General: Per HPI Gastrointestinal: Vomiting, Abdominal Pain, Diarrhea Musculoskeletal: other (Right flank pain) Objective Vitals Vital Signs Date Time Temp Pulse Resp B/P (MAP) Pulse Ox O2 Delivery O2 Flow Rate FiO2 11/15/24 09:00 98.8 85 18 105/63 (77) 97 98.8 11/15/24 08:00 Room Air* 0 21 Intake/Output Intake and Output 11/15/24 07:00 Intake Total 4852 ml Output Total 1550 ml Balance 3302 ml Intake Oral 4602 ml IV Total 250 ml Output Urine Total 1550 ml # Voids 2 # Bowel Movements 2 General Appearance: Alert, Oriented X3, Cooperative HEENT: Atraumatic Lungs: Clear to auscultation, Normal air movement Cardiovascular: Regular rate, Normal S1, Normal S2 Abdomen: Normal bowel sounds, Soft Medications Current Medications Medications Dose Ordered Sig/Trupti Route Start Time Stop Time Status Last Admin Dose Admin Norepinephrine Bitartrate 250 ml @ 3.75 mls/hr Q24H IV 11/10/24 05:15 11/12/24 09:21 7.5 MLS/HR Vancomycin HCl 0 ml @ 0 mls/hr UD IV 11/10/24 10:45 Ondansetron HCl 4 mg Q4HP PRN IV 11/10/24 10:45 Acetaminophen 650 mg Q6HP PRN PO 11/10/24 10:45 11/14/24 09:48 650 MG Nitroglycerin 0.4 mg Q5MINP PRN SL 11/10/24 10:45 Morphine Sulfate 2 mg Q30M PRN IV 11/10/24 10:45 11/12/24 14:37 2 MG Pantoprazole Sodium 40 mg DAILY IV 11/10/24 11:00 11/15/24 10:15 40 MG Enoxaparin Sodium 40 mg DAILY SC 11/13/24 10:00 11/13/24 11:25 40 MG Piperacillin Sod/ Tazobactam Sod 100 ml @ 25 mls/hr Q6HR IV 11/13/24 12:00 11/15/24 12:48 25 MLS/HR Lorazepam 2 mg Q8HP PRN IV 11/13/24 13:45 11/15/24 07:59 2 MG Vancomycin HCl 200 ml @ 200 mls/hr Q8H IV 11/15/24 08:00 11/15/24 10:15 200 MLS/HR Laboratory Results Laboratory Tests 11/13/24 04:55 11/15/24 06:53 Urinalysis Test 11/10/24 08:45 Urine Color Yellow (Yellow) Urine Clarity Turbid (Clear) H Urine pH 5.0 (5.0-9.0) Urine Specific [place] 1.025 (1.001-1.035) Urine Protein 1+ (Negative) H Urine Ketones 1+ (Negative) H Urine Blood 1+ /uL (Negative) H Urine Nitrite Negative (Negative) Urine Bilirubin Negative (Negative) Urine Urobilinogen Normal mg/dL (Negative) Urine Leukocyte Esterase Trace /uL (Negative) Urine RBC 5 /hpf (0 - 3) Urine Microscopic WBC 13 /HPF (0-3) H Urine Squamous Epithelial Cells Few /hpf (<5) Urine Bacteria None seen /hpf (None Seen) Urine Hyaline Casts Few /lpf (0 - 2) Urine Mucus Few (None Seen) Urine Yeast (Budding) Occasional /hpf (None Urine Sperm Present /hpf (None Seen) Urine Osmolality 491 mOsm/kg Urine Creatinine 224.05 mg/dL (30.0-125.0) H Urine Protein/Creatinine Ratio 0.46 Urine Sodium 19 mmol/L (40-220) L Urine Glucose Trace mg/dL (Normal) Urine Total Protein 103.7 mg/dL (1-14) H Microbiology Microbiology Date/Time Source Procedure Growth Status 11/10/24 05:00 Blood Blood Culture - Final Streptococcus pneumoniae Complete Labs and/or images reviewed: Labs reviewed by me, Image(s) reviewed by me Assessment/Plan Assessment/Plan Acute hypoxemic respiratory failure Lactic acidosis likely due to sepsis Septic shock UTI ISSAC Hyperbilirubinemia Pneumonia Esophagitis Hepatomegaly Tobacco use Marijuana use Meth use ETOH use 11/14/2024: improving, pt states he is homeless and has no place to be discharged to Plan discussed with: Patient Date of Service: Nov 14, 2024 Billing Provider: KALEN MACIAS DO Common Visit Codes: [id number] INP/OBS CARE(HIGH) KALEN MACIAS DO Nov 15, 2024 12:49
--- NOTE | 2024-11-15 12:51 | DVHDS2 ---
Discharge Summary Date of Admission Nov 10, 2024 at 10:42 Date of Discharge: Nov 15, 2024 Labs/Diagnostic Data: Laboratory Results Test 11/15/24 06:53 11/14/24 20:00 11/13/24 07:46 11/13/24 04:55 White Blood Count 15.0 10^3/uL (4.4-10.8) Red Blood Count 4.48 10^6/uL (4.5-5.90) Hemoglobin 12.6 g/dL (13.5-17.5) Hematocrit 36.5 % (41.0-53.0) Mean Corpuscular Volume 81.6 fL (80.0-100.0) Mean Corpuscular Hemoglobin 28.2 pg (28.0-32.0) Mean Corpuscular Hemoglobin Concent 34.6 g/dL (32.0-36.0) Red Cell Distribution Width 13.6 % (11.8-14.3) Platelet Count 337 10^3/uL (140-450) Mean Platelet Volume 7.3 fL (6.9-10.8) Neutrophils (%) (Auto) % (37.0-80.0) Lymphocytes (%) (Auto) % (10.0-50.0) Monocytes (%) (Auto) % (0.0-12.0) Basophils (%) (Auto) % (0.0-2.0) Neutrophils # (Auto) 10 ^3/uL (1.6-8.6) Lymphocytes # (Auto) 10 ^3/uL (0.4-5.4) Monocytes # (Auto) 10 ^3/uL (0-1.3) Differential Total Cells Counted 100.0 (100) Neutrophils % (Manual) 58 (37.0-80.0) Band Neutrophils % (Manual) 2 Lymphocytes % (Manual) 24 (10.0-50.0) Monocytes % (Manual) 10 (0-12) Eosinophils % (Manual) 2 (0-7) Basophils % (Manual) 0 (0.0-2.0) Metamyelocytes % (manual) 2 Myelocytes % (Manual) 2 Promyelocytes % (Manual) 0 Blast Cells % (Manual) 0 Reactive Lymphocytes 0 Platelet Estimate Adequate Red Blood Cell Morphology Normal Creatinine 0.66 mg/dL (0.700-1.30) Glomerular Filtration Rate Calc 132 mL/min (>90) Vancomycin Level Trough 23.5 ug/mL (5-10) Lactic Acid Level 1.2 mmol/L (0.4-2.0) Sodium Level 140 mmol/L (136-145) Potassium Level 4.3 mmol/L (3.5-5.1) Chloride Level 108 mmol/L (98-107) Carbon Dioxide Level 25 mmol/L (20-31) Anion Gap 7 (5-15) Blood Urea Nitrogen 8 mg/dL (9-23) BUN/Creatinine Ratio 11.1 (10.0-20.0) Serum Glucose 122 mg/dL (74-106) Calcium Level 8.7 mg/dL (8.7-10.4) Test 11/11/24 04:45 11/10/24 10:30 11/10/24 08:45 11/10/24 06:49 Large Platelets Few Magnesium Level 2.3 mg/dL (1.6-2.6) Total Bilirubin 0.7 mg/dL (0.2-1.0) Aspartate Amino Transferase (AST) 54 U/L (13-40) Alanine Aminotransferase (ALT) 52 U/L (7-40) Alkaline Phosphatase 63 U/L (46-116) Total Protein 5.3 g/dL (5.7-8.2) Albumin 3.2 g/dL (3.2-4.8) Random Vancomycin Level < 3.0 ug/mL (5-10) Influenza Type A Antigen Negative (Negative) Influenza Type B Antigen Negative (Negative) SARS-CoV-2 Antigen (Rapid) Negative (NEGATIVE) Urine Color Yellow (Yellow) Urine Clarity Turbid (Clear) Urine pH 5.0 (5.0-9.0) Urine Specific [place] 1.025 (1.001-1.035) Urine Protein 1+ (Negative) Urine Ketones 1+ (Negative) Urine Blood 1+ /uL (Negative) Urine Nitrite Negative (Negative) Urine Bilirubin Negative (Negative) Urine Urobilinogen Normal mg/dL (Negative) Urine Leukocyte Esterase Trace /uL (Negative) Urine RBC 5 /hpf (0 - 3) Urine Microscopic WBC 13 /HPF (0-3) Urine Squamous Epithelial Cells Few /hpf (<5) Urine Bacteria None seen /hpf (None Seen) Urine Hyaline Casts Few /lpf (0 - 2) Urine Mucus Few (None Seen) Urine Yeast (Budding) Occasional /hpf (None Urine Sperm Present /hpf (None Seen) Urine Osmolality 491 mOsm/kg Urine Creatinine 224.05 mg/dL (30.0-125.0) Urine Protein/Creatinine Ratio 0.46 Urine Sodium 19 mmol/L (40-220) Urine Glucose Trace mg/dL (Normal) Urine Total Protein 103.7 mg/dL (1-14) Urine Opiates Screen Neg (NEGATIVE) Urine Fentanyl Screen Pos (NEGATIVE) Urine Barbiturates Screen Neg (NEGATIVE) Urine Phencyclidine Screen Neg (NEGATIVE) Urine Amphetamines Screen Pos (NEGATIVE) Urine Benzodiazepines Screen Neg (NEGATIVE) Urine Cocaine Screen Neg (NEGATIVE) Urine Cannabinoids Screen Neg (NEGATIVE) Creatine Kinase 152 U/L (46-171) Troponin I High Sensitivity 43 ng/L (</=54) Test 11/10/24 04:25 11/10/24 04:10 Blood Gas Specimen Type Arterial Blood Gas Sample Site Right radial Blood Gas Patient Temperature 37.0 Arterial Blood Date Drawn [id number] Arterial Blood pH 7.428 (7.350-7.450) Arterial Blood Partial Pressure CO2 24.0 mmHg (35.0-48.0) Arterial Blood Partial Pressure O2 130.1 mmHg (83.0-108.0) Arterial Blood HCO3 15.5 mmol/L (21.0-28.0) Arterial Blood Oxygen Saturation 98.4 % (94.0-98.0) Arterial Blood Base Excess -7.0 mmol/L (-2.0-3.0) Arterial Blood Oxyhemoglobin 97.6 % (94.0-98.0) Arterial Blood Carboxyhemoglobin 0.3 % (0.5-1.5) Arterial Blood Methemoglobin 0.5 % (0.0-1.5) Dickson Test Yes Blood Gas Total Hemoglobin 13.20 g/dL (13.5-17.5) Blood Gas Liter Flow 6.00 Blood Gas Modality Nasal cannula FiO2 % 44.0 Specimen Drawn By Maggi arriaga Prothrombin Time 13.3 sec (9.3-11.8) Prothrombin Time INR 1.29 (0.9-1.15) Phosphorus Level 5.2 mg/dL (2.4-5.1) B-Type Natriuretic Peptide 830.78 pg/mL (0-100) Lipase 20 U/L (12-53) Vitamin D 25-Hydroxy 9.1 ng/mL (30.0-100) Parathyroid Hormone (Intact) 96.9 pg/mL (18.4-80.1) Hepatitis B Surface Antigen Negative (Negative) Hepatitis C Antibody Negative (Negative) Other Laboratory Tests 11/15/24 06:53 11/13/24 04:55 Brief Hx & Hospital Course: Acute hypoxemic respiratory failure Lactic acidosis likely due to sepsis Septic shock UTI ISSCA Hyperbilirubinemia Pneumonia Esophagitis Hepatomegaly Tobacco use Marijuana use Meth use ETOH use 11/14/2024: improving, pt states he is homeless and has no place to be discharged to 11/15/2024: pt is medically stable Condition at Discharge: Stable Final Diagnosis/Problems List see above Discharge Disposition: Home Discharge Instruct/Medications Diet: Cardiac 2g Na,low cholest Activity: No Restrictions, As Tolerated Discharge Statement: "Patient was advised to return to the ER or call 911 if any headaches, dizziness, shortness of breath, chest pain, abdominal pain, bleeding, fevers, or worsening of medical condition. Patient was counseled about treatment plan, medications, possible side effects, patientverbalized understanding. All questions were answered to the best of my ability. This discharge took greater then 30 minutes in planning, reviewing documentation, counseling the patient, and discussing with other team members." ASSESSMENT ASSESSMENT Assessment Date of Service: Nov 15, 2024 Billing Provider: KALEN MACIAS DO Common Visit Codes: [id number] DISCH DAY >30min KALEN MACIAS DO Nov 15, 2024 12:51
[2024-11-15 13:00] VITALS: BP 104/67; PULSE 93; RESP 18; TEMP 99; O2SAT 96
[2024-11-15 14:24] VITALS: BP 104/67; PULSE 93; RESP 18; TEMP 98; O2SAT 96
== END 2024-11-15 16:53 | disposition home or self-care (01) | DRG 720 ==
LOC: EDBD 03:30 → ER 03:30 → OVERFLOW 10:42 → TELE-WESTW 11-13 16:55
PROVIDERS: ADMIT Internal Medicine; ATTEND Internal Medicine
PROC: 05HM33Z Insertion of Infusion Device into Right Internal Jugular Vein, Percutaneous Approach (ICD-10-PCS; principal; 2024-11-10)
DX: A41.9 Sepsis, unspecified organism (principal); J96.01 Acute respiratory failure with hypoxia; N17.0 Acute kidney failure with tubular necrosis; R65.21 Severe sepsis with septic shock; J15.69 Pneumonia due to other Gram-negative bacteria; E87.20 Acidosis, unspecified; J15.9 Unspecified bacterial pneumonia; E87.1 Hypo-osmolality and hyponatremia; E86.0 Dehydration; E11.22 Type 2 diabetes mellitus with diabetic chronic kidney disease; N39.0 Urinary tract infection, site not specified; K20.90 Esophagitis, unspecified without bleeding; N18.9 Chronic kidney disease, unspecified; F15.10 Other stimulant abuse, uncomplicated; F17.210 Nicotine dependence, cigarettes, uncomplicated; K76.0 Fatty (change of) liver, not elsewhere classified; E87.6 Hypokalemia; E83.42 Hypomagnesemia; I12.9 Hypertensive chronic kidney disease with stage 1 through stage 4 chronic kidney disease, or unspecified chronic kidney disease; Z83.3 Family history of diabetes mellitus; Z59.00 Homelessness unspecified; Z79.899 Other long term (current) drug therapy
CPT/HCPCS: 36415; 36556; 36600; 70450; 71045; 71250; 74176; 76775; 80048; 80053; 80202; 80307; 81001; 82306; 82550; 82565; 82570; 82805; 83605; 83690; 83735; 83880; 83935; 83970; 84100; 84132; 84156; 84300; 84484; 85007; 85027; 85610; 86803; 87040; 87077; 87186; 87340; 87426; 87804; 96365; 96375; 99291; G0378; J2405; J2470; J2543